=== PATIENT | male | born 1955 | race Caucasian/White ===

== ENCOUNTER 2019-02-10 09:36 | Inpatient (IN) | payer MEDICARE, OTHER ==
[2019-02-10] MEDS ORDERED: Acetaminophen 500 MG Tab PO PRN (15:42)
[2019-02-10] MEDS ORDERED: oxyCODONE 5 MG Tab PO PRN (15:42)
[2019-02-10] MEDS ORDERED: Nicotine Polacrilex 2 MG Loz Box BUCCAL PRN (15:42)
[2019-02-10] MEDS ORDERED: Albuterol 8 GM Inhaler INH PRN (15:42)
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
[2019-02-10] MEDS: Gabapentin 400 MG Cap PO SCH ×2 (18:27→21:05)
[2019-02-10] MEDS: Sodium Chloride 0.9% 250 ML IV SCH (20:11)
[2019-02-10] MEDS: Tamsulosin 0.4 MG Cap.ER PO SCH (20:58)
[2019-02-10] MEDS: Mirtazapine 30 MG Tab PO SCH (20:58)
[2019-02-10] MEDS: Formoterol/Mometasone 100-5 MCG 8.8 GM Inhaler IH SCH (21:01)
[2019-02-10] MEDS: Nystatin Ointment 15 GM Tube TOP SCH (21:33)
[2019-02-10] MEDS: Sodium Chloride 0.9% 10 ML Syringe FLUSH PRN ×2 (21:35→22:42)
[2019-02-11] MEDS: Sodium Chloride 0.9% 10 ML Syringe FLUSH PRN ×4 (04:04→20:30)
[2019-02-11] MEDS: Formoterol/Mometasone 100-5 MCG 8.8 GM Inhaler IH SCH ×2 (10:24→21:40)
[2019-02-11] MEDS: Folic Acid 1 MG Tab PO SCH (10:26)
[2019-02-11] MEDS: Nicotine 14 MG/24 Hr Patch TOP SCH (10:26)
[2019-02-11] MEDS: Thiamine 100 MG Tab PO SCH (10:27)
[2019-02-11] MEDS: Gabapentin 400 MG Cap PO SCH ×3 (10:27→21:43)
[2019-02-11] MEDS: Multivitamins,Therapeutic Tab PO SCH (10:27)
[2019-02-11] MEDS: Cyanocobalamin (Vitamin B12) 500 MCG Tab PO SCH (10:27)
[2019-02-11] MEDS: Nystatin Ointment 15 GM Tube TOP SCH ×2 (10:27→21:40)
[2019-02-11] MEDS: Ascorbic Acid 500 MG Tab PO SCH (10:28)
[2019-02-11] MEDS: Cholecalciferol (Vitamin D3) 25 MCG Tab PO SCH (10:28)
[2019-02-11] MEDS: Sodium Chloride 0.9% 250 ML IV SCH (20:16)
[2019-02-11] MEDS: Tamsulosin 0.4 MG Cap.ER PO SCH (21:40)
[2019-02-11] MEDS: Mirtazapine 30 MG Tab PO SCH (21:40)
[2019-02-12] MEDS: Formoterol/Mometasone 100-5 MCG 8.8 GM Inhaler IH SCH ×2 (08:26→20:57)
[2019-02-12] MEDS: Gabapentin 400 MG Cap PO SCH ×3 (08:27→20:57)
[2019-02-12] MEDS: Nicotine 14 MG/24 Hr Patch TOP SCH (08:27)
[2019-02-12] MEDS: Nystatin Ointment 15 GM Tube TOP SCH ×2 (08:27→21:00)
[2019-02-12] MEDS: Folic Acid 1 MG Tab PO SCH (08:27)
[2019-02-12] MEDS: Thiamine 100 MG Tab PO SCH (08:28)
[2019-02-12] MEDS: Ascorbic Acid 500 MG Tab PO SCH (08:28)
[2019-02-12] MEDS: Multivitamins,Therapeutic Tab PO SCH (08:28)
[2019-02-12] MEDS: Cyanocobalamin (Vitamin B12) 500 MCG Tab PO SCH (08:28)
[2019-02-12] MEDS: Cholecalciferol (Vitamin D3) 25 MCG Tab PO SCH (08:28)
[2019-02-12] MEDS ORDERED: Magnesium Hydroxide 400 MG/5 ML Susp 30 ML Cup PO PRN (12:15)
[2019-02-12] MEDS: Sodium Chloride 0.9% 10 ML Syringe FLUSH PRN ×3 (14:52→22:52)
[2019-02-12] MEDS: Tamsulosin 0.4 MG Cap.ER PO SCH (20:57)
[2019-02-12] MEDS: Mirtazapine 30 MG Tab PO SCH (21:01)
[2019-02-13] MEDS: Formoterol/Mometasone 100-5 MCG 8.8 GM Inhaler IH SCH ×2 (09:54→20:23)
[2019-02-13] MEDS: Folic Acid 1 MG Tab PO SCH (09:55)
[2019-02-13] MEDS: Nicotine 14 MG/24 Hr Patch TOP SCH (09:56)
[2019-02-13] MEDS: Multivitamins,Therapeutic Tab PO SCH (09:57)
[2019-02-13] MEDS: Cholecalciferol (Vitamin D3) 25 MCG Tab PO SCH (09:58)
[2019-02-13] MEDS: Thiamine 100 MG Tab PO SCH (09:58)
[2019-02-13] MEDS: Ascorbic Acid 500 MG Tab PO SCH (09:59)
[2019-02-13] MEDS: Cyanocobalamin (Vitamin B12) 500 MCG Tab PO SCH (09:59)
[2019-02-13] MEDS: Gabapentin 400 MG Cap PO SCH ×3 (10:04→20:33)
[2019-02-13] MEDS: Nystatin Ointment 15 GM Tube TOP SCH ×2 (11:02→20:23)
[2019-02-13] MEDS: Sodium Chloride 0.9% 10 ML Syringe FLUSH PRN ×4 (12:30→22:06)
[2019-02-13] MEDS: Tamsulosin 0.4 MG Cap.ER PO SCH (20:23)
[2019-02-13] MEDS: Mirtazapine 30 MG Tab PO SCH (20:24)
[2019-02-14] MEDS: Sodium Chloride 0.9% 10 ML Syringe FLUSH PRN ×6 (03:19→22:23)
[2019-02-14] MEDS: Nicotine 14 MG/24 Hr Patch TOP SCH (09:00)
[2019-02-14] MEDS: Formoterol/Mometasone 100-5 MCG 8.8 GM Inhaler IH SCH ×2 (09:27→20:22)
[2019-02-14] MEDS: Gabapentin 400 MG Cap PO SCH ×3 (09:28→20:23)
[2019-02-14] MEDS: Folic Acid 1 MG Tab PO SCH (09:28)
[2019-02-14] MEDS: Multivitamins,Therapeutic Tab PO SCH (09:29)
[2019-02-14] MEDS: Cyanocobalamin (Vitamin B12) 500 MCG Tab PO SCH (09:29)
[2019-02-14] MEDS: Thiamine 100 MG Tab PO SCH (09:30)
[2019-02-14] MEDS: Ascorbic Acid 500 MG Tab PO SCH (09:30)
[2019-02-14] MEDS: Cholecalciferol (Vitamin D3) 25 MCG Tab PO SCH (09:30)
[2019-02-14] MEDS: Nystatin Ointment 15 GM Tube TOP SCH ×2 (11:36→20:23)
[2019-02-14] MEDS: Mirtazapine 30 MG Tab PO SCH (20:23)
[2019-02-14] MEDS: Tamsulosin 0.4 MG Cap.ER PO SCH (20:23)
[2019-02-15] MEDS: Sodium Chloride 0.9% 10 ML Syringe FLUSH PRN ×6 (03:43→22:41)
[2019-02-15] MEDS ORDERED: Enoxaparin 60 MG/0.6 ML Syringe SUBCUT ONE (07:27)
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
[2019-02-15] MEDS: Nicotine 14 MG/24 Hr Patch TOP SCH (10:07)
[2019-02-15] MEDS: Formoterol/Mometasone 100-5 MCG 8.8 GM Inhaler IH SCH ×2 (10:07→20:25)
[2019-02-15] MEDS: Folic Acid 1 MG Tab PO SCH (10:07)
[2019-02-15] MEDS: Nystatin Ointment 15 GM Tube TOP SCH ×2 (10:08→20:30)
[2019-02-15] MEDS: Ascorbic Acid 500 MG Tab PO SCH (10:09)
[2019-02-15] MEDS: Cholecalciferol (Vitamin D3) 25 MCG Tab PO SCH (10:09)
[2019-02-15] MEDS: Multivitamins,Therapeutic Tab PO SCH (10:09)
[2019-02-15] MEDS: Thiamine 100 MG Tab PO SCH (10:09)
[2019-02-15] MEDS: Cyanocobalamin (Vitamin B12) 500 MCG Tab PO SCH (10:09)
[2019-02-15] MEDS: Gabapentin 300 MG Cap PO SCH ×3 (10:11→20:30)
[2019-02-15] MEDS: Tamsulosin 0.4 MG Cap.ER PO SCH (20:26)
[2019-02-15] MEDS: Mirtazapine 15 MG Tab PO SCH (20:26)
[2019-02-16] MEDS: Sodium Chloride 0.9% 10 ML Syringe FLUSH PRN ×5 (04:24→20:01)
[2019-02-16] MEDS: Formoterol/Mometasone 100-5 MCG 8.8 GM Inhaler IH SCH ×2 (10:13→20:41)
[2019-02-16] MEDS: Nystatin Ointment 15 GM Tube TOP SCH ×2 (10:15→20:41)
[2019-02-16] MEDS: Nicotine 14 MG/24 Hr Patch TOP SCH (10:15)
[2019-02-16] MEDS: Folic Acid 1 MG Tab PO SCH (10:15)
[2019-02-16] MEDS: Cyanocobalamin (Vitamin B12) 500 MCG Tab PO SCH (10:16)
[2019-02-16] MEDS: Ascorbic Acid 500 MG Tab PO SCH (10:16)
[2019-02-16] MEDS: Multivitamins,Therapeutic Tab PO SCH (10:16)
[2019-02-16] MEDS: Thiamine 100 MG Tab PO SCH (10:16)
[2019-02-16] MEDS: Cholecalciferol (Vitamin D3) 25 MCG Tab PO SCH (10:17)
[2019-02-16] MEDS: Gabapentin 300 MG Cap PO SCH ×3 (10:22→20:46)
[2019-02-16] MEDS: Tamsulosin 0.4 MG Cap.ER PO SCH (20:40)
[2019-02-16] MEDS: Mirtazapine 15 MG Tab PO SCH (20:40)
[2019-02-17] MEDS: Ascorbic Acid 500 MG Tab PO SCH (09:23)
[2019-02-17] MEDS: Formoterol/Mometasone 100-5 MCG 8.8 GM Inhaler IH SCH ×2 (09:23→20:38)
[2019-02-17] MEDS: Gabapentin 300 MG Cap PO SCH ×3 (09:23→20:38)
[2019-02-17] MEDS: Thiamine 100 MG Tab PO SCH (09:23)
[2019-02-17] MEDS: Folic Acid 1 MG Tab PO SCH (09:23)
[2019-02-17] MEDS: Cyanocobalamin (Vitamin B12) 500 MCG Tab PO SCH (09:24)
[2019-02-17] MEDS: Cholecalciferol (Vitamin D3) 25 MCG Tab PO SCH (09:24)
[2019-02-17] MEDS: Multivitamins,Therapeutic Tab PO SCH (09:24)
[2019-02-17] MEDS: Nystatin Ointment 15 GM Tube TOP SCH ×2 (09:24→20:38)
[2019-02-17] MEDS: Nicotine 14 MG/24 Hr Patch TOP SCH (09:31)
[2019-02-17] MEDS: Sodium Chloride 0.9% 10 ML Syringe FLUSH PRN ×2 (14:12→20:15)
[2019-02-17] MEDS: Tamsulosin 0.4 MG Cap.ER PO SCH (20:38)
[2019-02-17] MEDS: Mirtazapine 15 MG Tab PO SCH (20:38)
[2019-02-18] MEDS: Sodium Chloride 0.9% 10 ML Syringe FLUSH PRN ×3 (04:19→20:12)
[2019-02-18] MEDS: Nicotine 7 MG/24 Hr Patch TOP SCH (09:13)
[2019-02-18] MEDS: Thiamine 100 MG Tab PO SCH (09:15)
[2019-02-18] MEDS: Formoterol/Mometasone 100-5 MCG 8.8 GM Inhaler IH SCH ×2 (09:15→20:21)
[2019-02-18] MEDS: Cyanocobalamin (Vitamin B12) 500 MCG Tab PO SCH (09:15)
[2019-02-18] MEDS: Nystatin Ointment 15 GM Tube TOP SCH ×2 (09:15→20:20)
[2019-02-18] MEDS: Gabapentin 300 MG Cap PO SCH ×3 (09:15→20:27)
[2019-02-18] MEDS: Multivitamins,Therapeutic Tab PO SCH (09:15)
[2019-02-18] MEDS: Cholecalciferol (Vitamin D3) 25 MCG Tab PO SCH (09:15)
[2019-02-18] MEDS: Ascorbic Acid 500 MG Tab PO SCH (09:16)
[2019-02-18] MEDS: Folic Acid 1 MG Tab PO SCH (09:16)
[2019-02-18] MEDS: Mirtazapine 15 MG Tab PO SCH (20:23)
[2019-02-18] MEDS: Tamsulosin 0.4 MG Cap.ER PO SCH (20:23)
[2019-02-19] MEDS: Sodium Chloride 0.9% 10 ML Syringe FLUSH PRN ×5 (04:05→21:43)
[2019-02-19] MEDS: Formoterol/Mometasone 100-5 MCG 8.8 GM Inhaler IH SCH ×2 (08:35→20:15)
[2019-02-19] MEDS: Folic Acid 1 MG Tab PO SCH (08:36)
[2019-02-19] MEDS: Nicotine 7 MG/24 Hr Patch TOP SCH (08:37)
[2019-02-19] MEDS: Gabapentin 300 MG Cap PO SCH ×3 (08:44→20:16)
[2019-02-19] MEDS: Nystatin Ointment 15 GM Tube TOP SCH ×2 (08:45→20:16)
[2019-02-19] MEDS: Multivitamins,Therapeutic Tab PO SCH (08:46)
[2019-02-19] MEDS: Cyanocobalamin (Vitamin B12) 500 MCG Tab PO SCH (08:46)
[2019-02-19] MEDS: Ascorbic Acid 500 MG Tab PO SCH (08:47)
[2019-02-19] MEDS: Thiamine 100 MG Tab PO SCH (08:47)
[2019-02-19] MEDS: Cholecalciferol (Vitamin D3) 25 MCG Tab PO SCH (08:48)
[2019-02-19] MEDS: Tamsulosin 0.4 MG Cap.ER PO SCH (20:16)
[2019-02-19] MEDS: Mirtazapine 15 MG Tab PO SCH (20:17)
[2019-02-20] MEDS: Sodium Chloride 0.9% 10 ML Syringe FLUSH PRN ×6 (03:46→21:51)
[2019-02-20] MEDS: Formoterol/Mometasone 100-5 MCG 8.8 GM Inhaler IH SCH ×2 (08:44→20:00)
[2019-02-20] MEDS: Nicotine 7 MG/24 Hr Patch TOP SCH (08:50)
[2019-02-20] MEDS: Folic Acid 1 MG Tab PO SCH (08:50)
[2019-02-20] MEDS: Gabapentin 300 MG Cap PO SCH ×3 (08:52→20:00)
[2019-02-20] MEDS: Nystatin Ointment 15 GM Tube TOP SCH ×2 (08:53→20:01)
[2019-02-20] MEDS: Thiamine 100 MG Tab PO SCH (08:54)
[2019-02-20] MEDS: Multivitamins,Therapeutic Tab PO SCH (08:54)
[2019-02-20] MEDS: Cyanocobalamin (Vitamin B12) 500 MCG Tab PO SCH (08:55)
[2019-02-20] MEDS: Ascorbic Acid 500 MG Tab PO SCH (08:55)
[2019-02-20] MEDS: Cholecalciferol (Vitamin D3) 25 MCG Tab PO SCH (08:56)
[2019-02-20] MEDS: Tamsulosin 0.4 MG Cap.ER PO SCH (20:00)
[2019-02-20] MEDS: Mirtazapine 15 MG Tab PO SCH (20:01)
[2019-02-21] MEDS: Sodium Chloride 0.9% 10 ML Syringe FLUSH PRN ×6 (03:34→21:43)
[2019-02-21] MEDS: Folic Acid 1 MG Tab PO SCH (09:10)
[2019-02-21] MEDS: Formoterol/Mometasone 100-5 MCG 8.8 GM Inhaler IH SCH ×2 (09:10→20:02)
[2019-02-21] MEDS: Nicotine 7 MG/24 Hr Patch TOP SCH (09:12)
[2019-02-21] MEDS: Nystatin Ointment 15 GM Tube TOP SCH ×2 (09:12→20:03)
[2019-02-21] MEDS: Gabapentin 300 MG Cap PO SCH ×3 (09:12→20:02)
[2019-02-21] MEDS: Multivitamins,Therapeutic Tab PO SCH (09:24)
[2019-02-21] MEDS: Cyanocobalamin (Vitamin B12) 500 MCG Tab PO SCH (09:25)
[2019-02-21] MEDS: Ascorbic Acid 500 MG Tab PO SCH (09:25)
[2019-02-21] MEDS: Thiamine 100 MG Tab PO SCH (09:25)
[2019-02-21] MEDS: Cholecalciferol (Vitamin D3) 25 MCG Tab PO SCH (09:26)
[2019-02-21] MEDS: Tamsulosin 0.4 MG Cap.ER PO SCH (20:02)
[2019-02-21] MEDS: Mirtazapine 15 MG Tab PO SCH (20:03)
[2019-02-22] MEDS: Sodium Chloride 0.9% 10 ML Syringe FLUSH PRN ×7 (03:07→22:15)
[2019-02-22] MEDS: Nicotine 7 MG/24 Hr Patch TOP SCH (08:26)
[2019-02-22] MEDS: Gabapentin 300 MG Cap PO SCH ×3 (08:26→20:10)
[2019-02-22] MEDS: Folic Acid 1 MG Tab PO SCH (08:27)
[2019-02-22] MEDS: Cholecalciferol (Vitamin D3) 25 MCG Tab PO SCH (08:27)
[2019-02-22] MEDS: Ascorbic Acid 500 MG Tab PO SCH (08:27)
[2019-02-22] MEDS: Formoterol/Mometasone 100-5 MCG 8.8 GM Inhaler IH SCH ×2 (08:28→20:07)
[2019-02-22] MEDS: Thiamine 100 MG Tab PO SCH (08:28)
[2019-02-22] MEDS: Multivitamins,Therapeutic Tab PO SCH (08:33)
[2019-02-22] MEDS: Cyanocobalamin (Vitamin B12) 500 MCG Tab PO SCH (08:33)
[2019-02-22] MEDS: Nystatin Ointment 15 GM Tube TOP SCH ×2 (08:34→20:07)
[2019-02-22] MEDS: Mirtazapine 15 MG Tab PO SCH (20:07)
[2019-02-22] MEDS: Tamsulosin 0.4 MG Cap.ER PO SCH (20:07)
[2019-02-23] MEDS: Sodium Chloride 0.9% 10 ML Syringe FLUSH PRN ×7 (03:20→21:36)
[2019-02-23] MEDS: Formoterol/Mometasone 100-5 MCG 8.8 GM Inhaler IH SCH ×2 (09:01→20:16)
[2019-02-23] MEDS: Folic Acid 1 MG Tab PO SCH (09:02)
[2019-02-23] MEDS: Nicotine 7 MG/24 Hr Patch TOP SCH (09:03)
[2019-02-23] MEDS: Nystatin Ointment 15 GM Tube TOP SCH ×2 (09:03→20:18)
[2019-02-23] MEDS: Multivitamins,Therapeutic Tab PO SCH (09:03)
[2019-02-23] MEDS: Cholecalciferol (Vitamin D3) 25 MCG Tab PO SCH (09:04)
[2019-02-23] MEDS: Ascorbic Acid 500 MG Tab PO SCH (09:04)
[2019-02-23] MEDS: Cyanocobalamin (Vitamin B12) 500 MCG Tab PO SCH (09:04)
[2019-02-23] MEDS: Thiamine 100 MG Tab PO SCH (09:15)
[2019-02-23] MEDS: Gabapentin 300 MG Cap PO SCH ×3 (09:15→20:18)
[2019-02-23] MEDS: Tamsulosin 0.4 MG Cap.ER PO SCH (20:16)
[2019-02-23] MEDS: Mirtazapine 15 MG Tab PO SCH (20:18)
[2019-02-24] MEDS: Sodium Chloride 0.9% 10 ML Syringe FLUSH PRN ×5 (03:42→21:24)
[2019-02-24] MEDS: Gabapentin 300 MG Cap PO SCH ×3 (08:02→20:00)
[2019-02-24] MEDS: Formoterol/Mometasone 100-5 MCG 8.8 GM Inhaler IH SCH ×2 (08:03→19:59)
[2019-02-24] MEDS: Thiamine 100 MG Tab PO SCH (08:03)
[2019-02-24] MEDS: Multivitamins,Therapeutic Tab PO SCH (08:03)
[2019-02-24] MEDS: Cholecalciferol (Vitamin D3) 25 MCG Tab PO SCH (08:03)
[2019-02-24] MEDS: Folic Acid 1 MG Tab PO SCH (08:03)
[2019-02-24] MEDS: Nystatin Ointment 15 GM Tube TOP SCH ×2 (08:03→20:00)
[2019-02-24] MEDS: Cyanocobalamin (Vitamin B12) 500 MCG Tab PO SCH (08:04)
[2019-02-24] MEDS: Ascorbic Acid 500 MG Tab PO SCH (08:04)
[2019-02-24] MEDS: Nicotine 7 MG/24 Hr Patch TOP SCH (09:47)
[2019-02-24] MEDS: Tamsulosin 0.4 MG Cap.ER PO SCH (19:59)
[2019-02-24] MEDS: Mirtazapine 15 MG Tab PO SCH (20:00)
[2019-02-25] MEDS: Nystatin Ointment 15 GM Tube TOP SCH ×3 (09:00→21:01)
[2019-02-25] MEDS: Formoterol/Mometasone 100-5 MCG 8.8 GM Inhaler IH SCH ×2 (09:00→21:00)
[2019-02-25] MEDS: Gabapentin 300 MG Cap PO SCH ×3 (09:01→21:00)
[2019-02-25] MEDS: Multivitamins,Therapeutic Tab PO SCH (09:01)
[2019-02-25] MEDS: Thiamine 100 MG Tab PO SCH (09:01)
[2019-02-25] MEDS: Ascorbic Acid 500 MG Tab PO SCH (09:01)
[2019-02-25] MEDS: Cholecalciferol (Vitamin D3) 25 MCG Tab PO SCH (09:01)
[2019-02-25] MEDS: Folic Acid 1 MG Tab PO SCH (09:01)
[2019-02-25] MEDS: Cyanocobalamin (Vitamin B12) 500 MCG Tab PO SCH (09:01)
[2019-02-25] MEDS: Nicotine 7 MG/24 Hr Patch TOP SCH (09:04)
--- OUTSIDE RECORDS SUMMARY | 2019-02-25 13:12 | XMSREPORT ---
:1955 Author Organization [facility] Address [address] [place] [address] Care Team Providers Name Role Phone Yennifer Kate PA-C Primary Care Provider Yennifer Kate PA-C Attributed Provider Reason for Referral Comprehensive Primary [facility] Plus (Routine) Status Reason Specialty Diagnoses / Referred By Referred To Procedures Contact Contact New Request Behavioral Health Diagnoses Current moderate episode of major depressive disorder without prior episode (HCC ) [place] (generalized anxiety disorder) [facility] Alberto Napier MD Psych [address] [place] [address] [place] MS Phone: [phone] Phone: Scheduling Instructions This is an electronic referral. Reason for Visit Reason Comments Fever Pt presents to ED with c/o weakness and fever of 101.9 @ home. Per pt. was recently diagnosed with pneumonia and admitted into the hospital 1 week ago. Pt. was Discharged and had been seeming to do better until today he reported increased weakness, cough, and fever. Pt. did give pt. 1000mg of Tylenol at approxiamtely 1830 Weakness Auth/Cert Status Reason Specialty Diagnoses / Procedures Referred By Contact Referred To Contact Encounter Details Date Type Department Care Team Description 01/27/2019 - Hospital Encounter [facility] Gustavo Bob MD [address] [place] [address] Pneumonia of right 02/10/2019 [facility] Stepan Whalen DO [address] [place] [address] [phone] upper lobe due to [address] Alexis Poon MD [address] [place] [address] [phone] [place] [address] Osito Vargas MD [address] [place] [address] (HCC) [phone] Kymberly Connolly MD [address] [place] [address] Allergies No Known Allergiesdocumented as of this encounter (statuses as of 02/10/2019) Medications Medication Sig Dispensed Refills Start End Date Status Date folic acid 1 mg Take 1 tablet (1 30 tablet 0 Active tabletIndications: mg) by mouth 1 9 Health time per day Maintainence Indications: Health Maintainence Thiamine HCl Take 1 tablet (100 30 tablet 0 Active (THIAMINE, VITAMIN mg) by mouth 1 9 B-1,) 100 mg time per day tabletIndications: Indications: health health maintainence maintainence multivitamin Take 1 tablet by 30 tablet 0 Active therapeutic with mouth 1 time per 9 minerals (THERA-M) day Indications: tabletIndications: health health maintainence maintainence vitamin C, Take 1 tablet (250 30 tablet 0 Active ascorbic acid, 250 mg) by mouth 1 9 MG time per day tabletIndications: Indications: Health Health Maintainence Maintainence vitamin D3, Take 1 tablet 30 tablet 0 Active cholecalciferol, (2,000 Units) by 9 2000 unit mouth 1 time per tabletIndications: day Indications: Health Health maintainence maintainence fluticasone-vilant Inhale 1 puff 1 Inhaler 11 02/15/20 Active yuliana (BREO orally 1 time per 9 20 ELLIPTA) 100-25 day Rinse mouth mcg/puff after use. inhalerIndications : Chronic obstructive pulmonary disease, unspecified COPD type (HCC) acetaminophen Take 2 tablets 0 Active (TYLENOL) 500 mg (1,000 mg) by 9 tabletIndications: mouth Every 8 Pain hours as needed for moderate pain Indications: Pain albuterol HFA Inhale 1 puff 1 Inhaler 4 Active (PROVENTIL,PROAIR, orally every 6 9 VENTOLIN) 108 (90 hours as needed Base) MCG/ACT for shortness of inhalerIndications breath, wheezing : COPD or cough Indications: COPD Shake well before using. nicotine Apply 1 patch (14 30 patch 0 Active (NICODERM) 14 mg) to the skin 1 9 mg/24hr time per day [id number]: Indications: Smoking Cessation Treatment to Stop Therapy Smoking nicotine Place 1 lozenge (2 81 each 0 Active polacrilex mg) into mouth 9 (COMMIT) 2 MG Every hour as LOZGIndications: needed for smoking Smoking Cessation cessation Therapy Indications: Treatment to Stop Smoking tamsulosin Take 1 capsule 90 capsule 0 Active (FLOMAX) 0.4 mg (0.4 mg) by mouth 9 capsuleIndications every night at : Urinary bedtime retention mirtazapine Take 1 tablet (30 90 tablet 4 02/15/20 Active (REMERON) 30 mg mg) by mouth every 9 20 tabletIndications: night at bedtime Depressive disorder due to separate medical condition oxyCODONE (OXY-IR) Take 1 tablet (5 12 tablet 0 Active 5 mg tablet mg) by mouth every 9 (immediate 6 hours as needed release)Indication for moderate pain s: Post-op pain Earliest Fill Date: 02/10/19 sodium chloride Administer 10 mL intravenously As often as necessary for other (Specify) (Flush infusion line before each antibiotic infusion and after each infusion completed) Flush infusion line before each antibiotic infusion and after each infusion completed. 0 Active 0.9% prefilled 10 Flush line with heparin 300 units/ 3 mL after the last saline flush 9 mL syringe 0.9% SOLNIndications: Pneumonia of right upper lobe due to Pseudomonas species (HCC) hEParin 100 Administer 3 mL 0 Active units/mL injection (300 Units) 9 solutionIndication intravenously As s: Pneumonia of often as necessary right upper lobe for other due to Pseudomonas (Specify) (heparin species (HCC) 300 units/3 mL IV FLUSH after completion of each antibiotic infusion (after saline flush)) heparin 300 units/3 mL IV FLUSH after completion of each antibiotic infusion (after saline flush) ceftazidime-avibac Administer 2,500 0 Active alcaraz (AVYCAZ) 2.5 g mg intravenously 9 in sodium chloride Every 8 hours 0.9% 250 mLIndications: Pneumonia of right upper lobe due to Pseudomonas species ([facility]) cyanocobalamin, Take 1 tablet (250 30 tablet 0 Active vitamin B-12, mcg) by mouth 1 9 (VITAMIN B-12) 250 time per day mcg Indications: tabletIndications: health health maintainence maintainence gabapentin Take 1 capsule 90 capsule 0 Active (NEURONTIN) 400 mg (400 mg) by mouth 9 capsuleIndications 3 times a day : Pain Indications: Pain nystatin (NILSTAT) Apply topically 2 15 g 0 02/14/20 Active ointmentIndication times a day for 3 03 11 s: Diaper rash days albuterol HFA Inhale 1-2 puffs 1 Inhaler 4 02/11/20 Discontinued (PROVENTIL,PROAIR, orally every 4 to 03 11 VENTOLIN) 108 (90 6 hours as needed Base) MCG/ACT for shortness of inhalerIndications breath, wheezing : Acute or cough Shake exacerbation of well before using. chronic obstructive pulmonary disease (COPD) ([facility]) fluticasone-vilant Inhale 1 puff 1 Inhaler 11 02/11/20 Discontinued yuliana (BREO orally 1 time per 03 11 ELLIPTA) 100-25 day Rinse mouth mcg/puff after use. inhalerIndications : Chronic obstructive pulmonary disease, unspecified COPD type ([facility]) acetaminophen Take 2 tablets 0 02/11/20 Discontinued (TYLENOL) 500 mg (1,000 mg) by 03 11 tabletIndications: mouth Every 8 S/P spinal fusion hours as needed for moderate pain cyanocobalamin, Take 1 tablet (250 30 tablet 0 02/11/20 Discontinued vitamin B-12, mcg) by mouth 1 19 (VITAMIN B-12) 250 time per day mcg tabletIndications: Increased nutritional needs folic acid 1 mg Take 1 tablet (1 30 tablet 0 02/11/20 Discontinued tabletIndications: mg) by mouth 1 9 Increased time per day nutritional needs gabapentin Take 1 capsule 90 capsule 0 02/11/20 Discontinued (NEURONTIN) 400 mg (400 mg) by mouth 03 11 capsuleIndications 3 times a day : S/P spinal fusion multivitamin Take 1 tablet by 0 02/11/20 Discontinued therapeutic with mouth 1 time per 03 11 minerals (THERA-M) day tabletIndications: Increased nutritional needs nicotine Apply 1 patch (14 30 patch 0 02/11/20 Discontinued (NICODERM) 14 mg) to the skin 1 03 11 mg/24hr time per day [id number]: History of nicotine dependence tamsulosin Take 1 capsule 30 capsule 0 02/11/20 Discontinued (FLOMAX) 0.4 mg (0.4 mg) by mouth 03 11 capsuleIndications every night at : Benign nodular bedtime prostatic hyperplasia with lower urinary tract symptoms Thiamine HCl Take 1 tablet (100 30 tablet 0 02/11/20 Discontinued (THIAMINE, VITAMIN mg) by mouth 1 03 11 B-1,) 100 mg time per day tabletIndications: Increased nutritional needs vitamin C, Take 1 tablet (250 30 tablet 0 02/11/20 Discontinued ascorbic acid, 250 mg) by mouth 1 9 19 MG time per day tabletIndications: Increased nutritional needs vitamin D3, Take 1 tablet 30 tablet 0 02/11/20 Discontinued cholecalciferol, (2,000 Units) by 03 11 2000 unit mouth 1 time per tabletIndications: day Increased nutritional needs levoFLOXacin Take 1 tablet (750 14 tablet 0 02/11/20 Discontinued (LEVAQUIN) 750 mg mg) by mouth 1 03 11 tabletIndications: time per day for Bacteremia, 14 days Pneumonia of right upper lobe due to Pseudomonas species (HCC) nicotine Place 1 lozenge (2 81 each 0 02/11/20 Discontinued polacrilex mg) into mouth 03 11 (COMMIT) 2 MG Every hour as LOZGIndications: needed for smoking COPD, moderate cessation (HCC) predniSONE 5 mg Take 2 tablets 12 tablet 0 02/11/20 Discontinued tabletIndications: (10mg) by mouth 03 11 COPD, moderate daily for 4 days, (HCC) then 1 tablet (5mg) daily for 4 days then stop. documented as of this encounter (statuses as of 02/10/2019) Active Problems Problem Noted Date Pneumonia of right upper lobe due to Pseudomonas species 01/28/2019 Sepsis due to Pseudomonas 01/28/2019 Pneumonia 01/17/2019 Weakness 12/08/2018 Overview: Right leg. 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 Acute pain of right shoulder 06/12/2017 ED (erectile dysfunction) 10/21/2016 Urinary urgency 10/21/2016 Urge incontinence 10/21/2016 Colonic mass 06/07/2016 Prostate cancer 05/16/2015 Cancer Staging: Clinical: [id number] - Signed by Ollie Marrero MD on 2014 Overview: Prostatic adenocarcinoma, Yonas score 7 (4+3) involving bilateral lobes, approximately 20% of the tissue, and confined to the prostate. Benign nodular prostatic hyperplasia with lower urinary tract symptoms 2014 Microscopic hematuria 04/06/2015 Elevated PSA, less than 10 ng/ml 03/20/2015 COPD, moderate 08/10/2014 documented as of this encounter (statuses as of 02/10/2019) Resolved Problems Problem Noted Date Resolved Date TBI (traumatic brain injury) 12/08/2018 01/05/2019 Other insomnia 12/08/2018 01/05/2019 Trauma 11/27/2018 01/05/2019 documented as of this encounter (statuses as of 02/10/2019) Immunizations Name Dates Previously Given Next Due FLU VACCINE HIGH DOSE 65YR+(Fluzone) 06/24/2018 FLU VACCINE SINGLE DOSE 06/12/2017 0.5mL(6MO+Fluzone/Flulaval/Fluarix,5YR+Af luria) Gentamicin 80 Mg/2ml 05/02/2015 HEP B VACCINE 10/31/2000, 03/17/2000, 02/01/2000 Influenza Trivalent w/preserv 05/01/2015 Influenza Vaccine,unspecified 05/04/2015 Pneumococcal Conj PCV13 06/24/2018 Pneumococcal Polysaccharide PPSV23 05/01/2015 TDAP 03/16/2015 documented as of this encounter Social History Tobacco Use Types Packs/Day Years Used Date Former Smoker Cigarettes 2 34 06/23/1968 - 06/23/2006 Smokeless Tobacco: Former User Chew Comments: 2-3 tin/ wk. Alcohol Use Drinks/Week oz/Week Comments Not Currently 6 Cans of beer 3.6 socially Sexually Active Control Partners Comments Yes Surgical Female Sex Assigned at Date Recorded Not on file Job Start Date Occupation Industry Not on file Not on file Not on file Travel History Travel Start Travel End No recent travel history available. documented as of this encounter Last Filed Vital Signs Vital Sign Reading Time Taken Blood Pressure 123/71 02/10/2019 12:37 PM CDT Pulse 95 02/10/2019 1:10 PM CDT Temperature 37 C (98.6 F) 02/10/2019 12:37 PM CDT Respiratory Rate 16 02/10/2019 12:37 PM CDT Oxygen Saturation 92% 02/10/2019 1:10 PM CDT Inhaled Oxygen Concentration - - Weight 65.2 kg (143 lb 11.8 oz) 02/02/2019 6:00 AM CDT Height 172.7 cm (5' 8") 01/27/2019 11:08 PM CDT Body Mass Index 21.86 01/27/2019 11:08 PM CDT documented in this encounter Functional Status Functional Status Response Date of Assessment Is the person deaf or does he/she No 01/28/2019 have serious difficulty hearing? Is this person blind or does he/she No 01/28/2019 have difficulty seeing even when wearing glasses? Do you have difficulty with walking, Yes 01/27/2019 balance, climbing stairs, or had a fall in the last 3 months? Does the patient have difficulty Yes 01/27/2019 dressing or bathing? Because of a physical, mental, or No - Pt reports ride service 01/27/2019 emotional condition; does this person have difficulty doing errands alone such as visiting a doctor's office or shopping? Cognitive Status Response Date of Assessment Because of a physical, mental, or emotional condition; No 01/27/2019 does this person have serious difficulty concentrating, remembering, or making decisions? documented as of this encounter Discharge Summaries Not on filedocumented in this encounter Discharge Instructions Sarah Velez RN - 02/07/2019 Cardiothoracic Surgery Discharge Instructions 1. Follow up with Dr. Monique in 1 week after discharge as scheduled. 2. Do not lift anything heavier than a gallon of milk or do any strenuous upper body activity with your right upper body for 4 weeks from the date of surgery. 3. Keep your incisions clean and dry. They can be washed with soap and water then patted dry. No dressings, ointments, creams, or powders are necessary unless directed by your doctor. 4. Place a band-aid or dry dressing over your chest tube sites only if draining 5. Call Dr. Monique' office at [phone] if any of the following symptoms appear: Fever If your incisions appear reddened, draining purulent drainage, or if the wound edges come apart. If you develop shortness of breath or activity intolerance If your pain is severe and/or not relieved with pain medication 6. If any of the above symptoms appear after hours, or on weekends, call [facility] at or [phone]. 7. You may shower, however do not take a tub bath, until okayed by your doctor. 8. Do not drive until off of narcotic pain medicine. 9. Continue to use your incentive spirometer at home. Discharge Instructions: Caring for Your Peripherally Inserted Central Catheter ( PICC) You are going home with a peripherally inserted central catheter (PICC). This small, soft tube has been placed in a vein in your arm. It is often used when treatment requires medicines or nutrition forweeks or months. At home, you need to take care of your PICC to keep it working.Because a PICC line has a high infection risk, you must take extra care washing your hands and preventing the spread ofgerms. This sheet will help you remember what to do to care for your PICC at home. Understanding your role A nurse or other healthcare provider will teach you and your caregivers how to care for the PICC.Before leaving the hospital, make sure you understand what to do at home, how long you may need the PICC, and when to have a follow-up visit. You will likely be told to flush the PICC with saline or heparin solution. You may also be told to change the catheters injection caps and change the dressing (bandage). Or, a nurse may do this for you during a follow-up visit. Only do these things if youre told to, following the instructionsyou were given. Protecting the PICC If the PICC gets damaged, it wont work right and could raise your chance of infection. Call your healthcare team right away if any damage occurs. To protect the PICC at home: Prevent infection. Use good hand hygiene by following the guidelines on this sheet. Dont touchthe catheter or dressing unless you need to. And always clean your hands before and after you come in contact with any part of the PICC. Your caregivers, family members, and any visitors should use good hand hygiene, too. Keep the PICC dry. The catheter and dressing must stay dry. Dont take baths, go swimming, use a hot tub, or do other things that could get the PICC wet. Take a sponge bath to avoid getting your catheter wet, unless your healthcare provider tells you otherwise. Ask your provider about the best way to keep your catheter dry when bathing or showering. If the dressing does get wet, change it only if you have been shown how. Otherwise, call your healthcare team right away for help. Avoid damage. Dont use any sharp or pointy objects around the catheter. This includes scissors, pins, knives, razors, or anything else that could cut it or put a hole in it (puncture it). Also, dont let anything pull or rub on the catheter, such as clothing. Watch for signs of problems. Pay attention to how much of the catheter sticks out from your skin.If this changes at all, let your healthcare provider know. Also watch for cracks, leaks, or other damage. If the dressing becomes dirty, loose, or wet, change it (if you have been instructed to). Or call your healthcare team right away. Avoid lowering your chest below your waist. This includes bending at the waist to do things like tying your shoes. When your chest is below your waist, especially for a long time, the catheters internal tip could slip out of place in the vein. Tell your healthcare team if you vomit or have severe coughing. This can also make the catheter slip out of place. Protecting your arm The arm with the PICC is at risk for developing blood clots (thrombosis). This is a serious problem.To help prevent it: As much as possible, use the arm with the PICC in it for normal daily activities. Lack of movement can lead to blood clots. So its important to move your arm as you normally would. Your healthcare team may suggest light arm exercises. Avoid activities or exercises that require major use of your arm, such as sports, unless your healthcare provider says its OK. Avoid any activities that cause mild pain in your arm. Talk to your healthcare team if you have concerns about pain or range of motion. Dont lift anything heavier than 10 pounds with the affected arm. Drink plenty of water. Staying hydrated helps keep clots from forming. Prevent infection with good hand hygiene A PICC can let germs into your body. This can lead to serious and sometimes deadly infections. To prevent infection, its very important that you, your caregivers, and others around you use good handhygiene. This means washing your hands well with soap and water, and cleaning them with an alcohol-based hand gel as directed. Never touch the PICC or dressing without first using one of these methods. To wash your hands with soap and water: Wet your hands with warm water. (Avoid hot water, which can cause skin irritation when you wash your hands often.) Apply enough soap to cover the whole surface of your hands, including your fingers. Rub your hands together vigorously for at least 15 seconds. Make sure to rub the front and back of each hand up to the wrist, your fingers and fingernails, between the fingers, and each thumb. Rinse your hands with warm water. Dry your hands completely with a new, unused paper towel. Dont use a cloth towel or other reusable towel. These can harbor germs. Use the paper towel to turn off the faucet, then throw it away. If youre in a bathroom, also use a paper towel to open the door instead of touching the handle. When you dont have access to soap and water: Use an alcohol-based hand gel to clean your hands.The gel should have at least 60% alcohol. Follow the instructions on the package. Your healthcare team can answer any questions you have about when to use hand gel, or when its better to wash with soap and water. When to seek medical care Call your provider right away if you have any of the following: Pain or burning in your shoulder, chest, back, arm, or leg Fever of 100.4F (38.0C) or higher Chills Signs of infection at the catheter site (pain, redness, drainage, burning, or stinging) Coughing, wheezing, or shortness of breath A racing or irregular heartbeat Muscle stiffness or trouble moving Tightness in your arm, above the catheter site Gurgling noises coming from the catheter The catheter falls out, breaks, cracks, leaks, or has other damage Date Last Reviewed: 12/22/201519992698-3633 [employer]. [address] [place] [address]. All rights reserved. This information is not intended as a substitute for professional medical care. Always follow your healthcare professional's instructions. Central Line Infections Good handwashing helps prevent central line infections. You need a central line as part of your treatment. Its also called a central venous access device(CVAD) or central venous catheter (CVC). A small, soft tube called a catheter is put in a vein that leads to your heart. The central line is used instead of a standard IV (intravenous) line. It does not need to be replaced as often as a standard IV. This means less pain and fewer needlesticks during treatment. But central lines come with a risk of infection. This sheet tells you more about central line infections and what hospitals are doing to prevent them. And it explains how an infection is treated, if one occurs. Types of central lines With a central line, a catheter is inserted into your body through a vein that leads to the large vein near the heart (vena cava). Types of central lines and their risk of infection are listed below. Which type is best for you depends on your needs and your overall health. Your healthcare provider cantell you which type of line you need, and why. Peripherally inserted central catheter (PICC).This is placed in a large vein in the upper arm, or near the bend of the elbow. Subclavian line. Thisis placed in a vein that runs behind the collarbone. Internal jugular line.This is placed into a large vein in the neck. Infection risk is higher than with a PICC or subclavian line, but lower than with a femoral line. Femoral line.This may be placed in a large vein in the groin. This site is generally not usedbecause of an increased risk for infection. Tunneled catheter. This is run through the soft tissue under the skin before it enters a vein. A small cuff helps hold the catheter in place. Both the tunnel and the cuff help prevent infection. This type of catheter may be placed in any of the above locations. Port. This small device is placed completely under the skin on the arm or chest. Its connectedto a catheter that is threaded into the vena cava. Types of infections A central line provides a direct path into your bloodstream. This gives germs possible access into your body. All types of central lines are associated with some risk of infection. Often, the germs that cause a central line infection come from your own skin. There are 2 possible types of infection: Local infection. This can occur where the central line enters your body. Symptoms include redness, pain, or swelling at or near the catheter site, pain or tenderness along the path of the catheter, and drainage from the skin around the catheter. Systemic infection (also called bacteremia). This can occur if germs get into the bloodstream. This is very serious and can be fatal. Symptoms include sudden fever, shaking chills, a racing heartbeat, confusion, change in behavior , and a skin rash. Risk factors for infection Anyone who has a central line can get an infection. Your risk is higher if you: Are in the intensive care unit (ICU). Have a weakened immune system or serious illness. Are receiving bone marrow or chemotherapy. Have the line for an extended time. Have a central line in your neck or groin. How central line infections are treated Treatment depends on the type of central line, how severe the infection is, and your overall health.Your healthcare provider will prescribe antibiotics to fight the infection. The line may also need to be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 Chest compressions and electrical intervention okay Chief Complaint: Patient is a 63 year old male admitted to the hospital with pseudomonas pneumonia and right upper lobe abscess. Subjective: He remains medically stable. No acute events overnight. ROS: Patient denies any chest pain, abdominal pain, nausea, vomiting, headache or dizziness. He endorses some shortness of breath. Objective: Vital signs in last 24 hours: Vitals Vitals: 01/30/19 0821 01/30/19 0946 01/30/19 1542 01/30/19 1912 BP: 116/83 125/83 120/75 Pulse: 86 88 87 94 Resp: 16 14 16 20 Temp: 98.1 F (36.7 C) 98.9 F (37.2 C) 99.7 F (37.6 C) SpO2: 93% 94% 97% 97% Weight: Height: Weight change: Vitals Min/Max Last 24 Hours Vital Signs Min/Max (last 24 hours) Flowsheet Row Name Min Max Temp 97.9 F (36.6 C) 99.7 F (37.6 C) BP: Systolic 116 125 BP: Diastolic 75 83 Pulse 86 94 Resp 14 20 SpO2 93 % 97 % Intake and Output Last 24 Hours 01/29 0700 - 01/30 0659 In: 1532 Out: 1450 Physical Exam: General Appearance: alert, well appearing, and in no distress Mental Status: oriented to person, place, and time Chest: Decreased breath sounds to the base of right side, good air entry to left base. Lungs clear to auscultation. He does have mild increase work of breathing. Heart: normal rate, regular rhythm, normal S1, S2, no murmur Abdomen: soft, nontender, nondistended, bowel sounds heard. Neurological: normal speech, no gross sensory or motor deficits noted Extremities: No pedal edema, no tenderness Associated attestation - Osito Vargas MD - 02/07/2019 11:52 PM CDTMrCucaRyan was seen and discussed with ; I personally interviewed and examined the patient. I agree with 's diagnosis and management. 63yr male with recurrent pseudomonal pneumonia c/b lung abscess, now s/p right thoracotomy and rightupper lobectomy on 02/02/19. Cx resistant to carbapenem, Abx switched to Ceftazidime+Avibactam per ID. Pt was having depression symptoms and has some suicidal ideation which has improved now. Psych consult appreciated. CT surgery following - drains removed yesterday. Continue PT/OT, will need rehab placement on DC. Osito Vargas MD, Kaveh Becerra MD - 02/06/2019 6:18 PM CDT [facility]ist Daily Progress Note Assessment/Plan: #Pseudomonal Pneumonia #Lung abscess 2/2 Pneumonia -Cardiothoracic surgery following- Patient had Right thoracotomy and right upper lobectomy -Post-op Day 5 -Chest tubes are removed. -Scheduled nebs and EzPap Patient needs to get up to facilitate drainage of any pleural fluid. -ID following -Patients cultures came back for CRE- started on ceftazidime-avibactam 2500mg infusion every 8 hours -Anticipate will need IV Ceftazidime-avibactam on discharge -Pain management post-op with Dilaudid mg IV every hour PRN for severe pain -oxycodone 5 mg PRN Q3 hours for moderate pain. #Irritant dermatitis - likely fungal -Nystatin BID #Anemia -Patient is post-op day 5 of right thoracotomy and right upper lobectomy -Stable #Depressive disorder 2/2 medical conditions #anxiety disorder due to medical condition #Insomnia due to medical condition -Psychiatry evaluated today: -Increased Remeron to 30mg -Started Clonazepam 0.25 po QDprn prior to suction/procedures that increase anxiety -Psychology to see -Psychiatry will continue to follow Chronic Problems: -COPD: continue home breo-ellipta, prn albuterol -Urinary retention: continue home flomax, - maxwell cath d/c DVT prophylaxis: Heparin Disposition: Pt profiled to critical access hospitals/swing bed- Pending removal of chest tubes Code Status: Modified DNR, no intubation. Chest compressions and electrical intervention okay Chief Complaint: Patient is a 63 year old male with a PMH of COPD, prostate cancer , traumatic brain injury (November 2018) He was recently admitted to the hospital on 01/17 for pneumonia with SOB hemoptysis and hypoxia. He was found to have pseudomonas pneumonia and was treated with meropenem in hospital and discharged on levaquin. He presented yesterday with cough, hemoptysis, weakness and worsening short ness of breath. He was admitted for Pneumonia and right upper lobe abscess . Subjective: Today the patient states his breathing is much better, he states that he feels much better after thechest tubes have been removed, the pain in his chest wall is much better. Patients mood is improved as well. He denies fever, chest pain, headaches, chills, vomiting and diarrhea. Objective: Vital signs in last 24 hours: Vitals Vitals: 01/30/19 0821 01/30/19 0946 01/30/19 1542 01/30/19 1912 BP: 116/83 125/83 120/75 Pulse: 86 88 87 94 Resp: 16 14 16 20 Temp: 98.1 F (36.7 C) 98.9 F (37.2 C) 99.7 F (37.6 C) SpO2: 93% 94% 97% 97% Weight: Height: Weight change: Vitals Min/Max Last 24 Hours Vital Signs Min/Max (last 24 hours) Flowsheet Row Name Min Max Temp 97.9 F (36.6 C) 99.7 F (37.6 C) BP: Systolic 116 125 BP: Diastolic 75 83 Pulse 86 94 Resp 14 20 SpO2 93 % 97 % Intake and Output Last 24 Hours 01/29 0700 - 01/30 0659 In: 1532 Out: 1450 Physical Exam: General Appearance: alert, well appearing, and in no distress Mental Status: oriented to person, place, and time Chest:Decreased breath sonds bilaterally R>L Wheezing in the right upper lung field- Improved Heart: normal rate, regular rhythm, normal S1, S2, no murmur Abdomen: soft, nontender, nondistended, bowel sounds heard. Tenderness to palpation of the right chest wall Neurological: normal speech, no gross sensory or motor deficits noted Extremities: No pedal edema, no tenderness Associated attestation - Osito Vargas MD - 02/06/2019 11:06 PM CDTMrCucaRyan was seen and discussed with ; I personally interviewed and examined the patient. Iagree with 's diagnosis and management. 63yr male with recurrent pseudomonal pneumonia c/b lung abscess, now s/p right thoracotomy and rightupper lobectomy on 02/02/19. Cx resistant to carbapenem, Abx switched to Ceftazidime+Avibactam per ID. Pt was having depression symptoms and has some suicidal ideation which has improved now. Psych consult appreciated. CT surgery following - drains removed today. Patient feeling much better today. Osito Vargas MD, Michael Lr MD - 02/06/2019 7:39 AM CDT CVTS Progress Note POD #5 Subjective: Problems over the previous 24 hours: none. More productive cough. Still on small amount of oxygen. Objective: Temp: 97.7 F (36.5 C) | BP: 124/82 | Pulse: 101 | Resp: 16 | Pain Ratin (out of 10) | Weight: 65.2 kg (143 lb 11.8 oz) | O2 Device: NC - no humidity O2 Flow Rate (L/min): 2 l/min | SpO2: 97 % Maximum Temperatures (last 24 hours) Temperature Maximum Max Temp 99.6 F (37.6 C) #1 Right Chest Tube Output: 40 mL/24 hours - negative air leak on water seal #2 Right Chest Tube Output: 30 mL/24 hours - negative air leak on water seal Heart: tachycardic Lungs: coarse breath sounds bilaterally Incision: right chest clean, dry and intact Labs: CBC: WBC Date Value Ref Range Status 02/05/2019 6.0 4.0 - 11.0 K/uL Final 02/04/2019 9.3 4.0 - 11.0 K/uL Final Hemoglobin Date Value Ref Range Status 02/05/2019 7.4 (L) 13.5 - 17.5 g/dL Final 02/04/2019 8.0 (L) 13.5 - 17.5 g/dL Final Hematocrit Date Value Ref Range Status 02/05/2019 23.0 (L) 40.0 - 50.0 % Final 02/04/2019 24.3 (L) 40.0 - 50.0 % Final Platelet Count Date Value Ref Range Status 02/05/2019 215 140 - 400 K/uL Final 02/04/2019 218 140 - 400 K/uL Final Renal Function Panel: Sodium Date Value Ref Range Status 02/05/2019 136 135 - 145 meq/L Final 02/04/2019 132 (L) 135 - 145 meq/L Final Potassium Date Value Ref Range Status 02/05/2019 4.1 3.5 - 5.3 meq/L Final 02/04/2019 4.1 3.5 - 5.3 meq/L Final Chloride Date Value Ref Range Status 02/05/2019 92 (L) 99 - 110 meq/L Final 02/04/2019 92 (L) 99 - 110 meq/L Final CO2 Date Value Ref Range Status 02/05/2019 35 (H) 20 - 29 meq/L Final 02/04/2019 34 (H) 20 - 29 meq/L Final BUN Date Value Ref Range Status 02/05/2019 9 6 - 22 mg/dL Final 02/04/2019 7 6 - 22 mg/dL Final Creatinine Date Value Ref Range Status 02/05/2019 0.52 (L) 0.80 - 1.30 mg/dL Final 02/04/2019 0.51 (L) 0.80 - 1.30 mg/dL Final Glucose Date Value Ref Range Status 02/05/2019 122 (H) 70 - 100 mg/dL Final 02/04/2019 141 (H) 70 - 100 mg/dL Final Calcium Date Value Ref Range Status 02/05/2019 8.3 (L) 8.5 - 10.5 mg/dL Final 02/04/2019 8.2 (L) 8.5 - 10.5 mg/dL Final Phosphorus Date Value Ref Range Status 02/02/2019 3.0 2.5 - 4.5 mg/dL Final 02/01/2019 3.8 2.5 - 4.5 mg/dL Final Albumin Date Value Ref Range Status 02/02/2019 2.6 (L) 3.5 - 5.0 g/dL Final 02/01/2019 2.9 (L) 3.5 - 5.0 g/dL Final Path: No malignancy, large abscess with exposed artery Chest X-Ray: improved volume loss, trachea midline today Assessment: S/P thoracotomy, right upper lobe lobectomy Plan: Chest tubes removed Continue scheduled nebs and EzPap another day Other cares per primary team Jessica Sharp MD - 02/05/2019 8:06 PM CDT INFECTIOUS DISEASE PROGRESS Impression - Right upper lobe lung abscess s/p right upper lobe lobectomy on 02/01/19, intra -operative culture with 3 strains of pseudomonas aeruginosa including a carbapenem resistant strain - Recent admission for Pseudomonas aeruginosa bacteremia and pneumonia Plan - Continue ceftazidime-avibactam 2.5g IV Q8H - Anticipate discharge on IV ceftazidime-avibactam, please call for discharge IV antibiotic order once patient is ready for discharge Jessica Ferrera MD Infectious Disease Pager [phone] Interval History S/p right upper lobe lobectomy on 02/01/19, He has been afebrile. No nausea, vomiting or diarrhea He is coughing up clear phlegm Right chest tubes still place Antibiotics Antibiotics (From admission, onward) Start Stop Route Frequency Ordered 02/04/19 1130 ceftazidime-avibactam (AVYCAZ) 2,500 mg in sodium chloride 0.9% 250 mL -- IV Every eight hours 02/04/19 1109 02/01/19 1215 ceFAZolin (ANCEF) 2000 mg/20 mL sterile water IV syringe ( ceFAZolin (ANCEF) 2 g IV (for patient weight 120 kg OR LESS or weight NOT available)) 02/01 1320 IV Give in OR 01/31/19 1207 01/28/19 0600 meropenem (MERREM) 500 mg in sodium chloride 0.9% 100 mL ( meropenem (MERREM) 1 g IVnow followed by 500 mg q6h) Status: Discontinued 02/04 1038 IV Every six hours 01/27/19 2248 01/27/19 2250 meropenem (MERREM) 1,000 mg in sodium chloride 0.9% 100 mL ( meropenem (MERREM) 1 g IV now followed by 500 mg q6h) 01/28 0019 IV Now 01/27/19 2248 All other medications reviewed in Epic. Physical Exam Current Vital Signs Temp: 99.6 F (37.6 C) BP: 110/72 Pulse: 115 O2 Device: NC - no humidity O2 Flow Rate (L/min): 1 l/min Resp: 16 Pain Ratin (out of 10) Weight: 65.2 kg (143 lb 11.8 oz) SpO2: 96 % Maximum Temperatures (last 24 hours) Temperature Maximum Max Temp 99.6 F (37.6 C) Physical Exam General: cooperative, no distress Lungs: Decreased breath sounds bilaterally, + chest tubes, s/p right thoracotomy with right upper lobe lobectomy Heart: regular Abdomen: soft, BS+, no tenderness Msk: no swelling of joints, no edema Skin: no suspicious rashes Neuro: Alert, follows commands Microbiology BLOOD: 01/17/19 - Pseudomonas aeruginosa 01/19/19 - No growth 01/27/19 - No growth URINE: 01/17/19 - Klebsiella pneumoniae 02/01/19 Pleural fluid - Pseudomonas aeruginosa (3 strains including a CR strain) Labs and Imaging Estimated Creatinine Clearance: 130.6 mL/min (A) (based on SCr of 0.52 mg/dL (L) ). Lab Results Component Value Date WBC 6.0 02/05/2019 NUCRBC 0 02/04/2019 RBC 2.48 (L) 02/05/2019 HEMOGLOBIN 7.4 (L) 02/05/2019 HEMATOCRIT 23.0 (L) 02/05/2019 MCV 92.7 02/05/2019 MCH 29.8 02/05/2019 MCHC 32.2 02/05/2019 PLTCOUNT 215 02/05/2019 NEUTROPCT 84.3 02/04/2019 BANDPCT 21.0 01/19/2019 LYMPHSPCT 9.1 02/04/2019 MONOSPCT 6.5 02/04/2019 EOSPCT 0.0 02/04/2019 BASOPHILPCT 0.1 02/04/2019 Lab Results Component Value Date GLUCOSE 122 (H) 02/05/2019 BUN 9 02/05/2019 CREATSERUM 0.52 (L) 02/05/2019 BCRATIO 17.3 02/05/2019 NA 136 02/05/2019 POTASSIUM 4.1 02/05/2019 CL 92 (L) 02/05/2019 CO2 35 (H) 02/05/2019 CA 8.3 (L) 02/05/2019 PROTEINTOTAL 5.2 (L) 01/29/2019 ALBUMIN 2.6 (L) 02/02/2019 ALKPHOS 120 01/29/2019 AST 28 01/29/2019 ALT 40 01/29/2019 BILITOTAL 0.6 01/29/2019 Medical Decision Making Total unit / floor time 35 minutes. Over 50% of total time used in counseling and coordination of care. ónica Stanley, PHD - 02/05/2019 2:37 PM CDTPatient declined psychology consult on third try, noting he was about to visit with grandchildren. Will re-attempt on Friday. Kaveh Peres MD - 02/05/2019 1:27 PM CDT [facility]ist Daily Progress Note Assessment/Plan: #Pseudomonal Pneumonia #Lung abscess 2/2 Pneumonia -Cardiothoracic surgery following- Patient had Right thoracotomy and right upper lobectomy -Post-op Day 4 -Cardiothoracic surgery notes chest tube output down and no air leaks, but progressive volume loss on right. -Pt not coughing well and continues to have significant deep secretions. - Cardiothoracic surgery will add scheduled nebs and EzPap today. Need to leave both tubes today. Patient needs to get up to facilitate drainage of any pleural fluid. 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 #Irritant dermatitis - likely fungal -Nystatin BID #Anemia -Patient is post-op day three of right thoracotomy and right upper lobectomy -Hemoglobin has dropped to 7.4 from 8.0. Patient is on transfusion parameters. 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 Chest compressions and electrical intervention okay Chief Complaint: Patient is a 63 year old male with a PMH of COPD, prostate cancer , traumatic brain injury (November 2018) He was recently admitted to the hospital on 01/17 for pneumonia with SOB hemoptysis and hypoxia. He was found to have pseudomonas pneumonia and was treated with meropenem in hospital and discharged on levaquin. He presented yesterday with cough, hemoptysis, weakness and worsening short ness of breath. He was admitted for Pneumonia and right upper lobe abscess . Subjective: Today the patient states that he has a cough, he has not coughed up any blood, but has noticed a cough. He states that he is not able to cough with force as it hurts when he coughs where the chest tubes are inserted. He states that his breathing feels better, but is still short of breath at times at rest and during exertion, and notices his breathing is worst when he feels anxious. Patient complains that PT is very difficult, but understands that is something he needs to do. Objective: Vital signs in last 24 hours: Vitals Vitals: 01/30/19 0821 01/30/19 0946 01/30/19 1542 01/30/19 1912 BP: 116/83 125/83 120/75 Pulse: 86 88 87 94 Resp: 16 14 16 20 Temp: 98.1 F (36.7 C) 98.9 F (37.2 C) 99.7 F (37.6 C) SpO2: 93% 94% 97% 97% Weight: Height: Weight change: Vitals Min/Max Last 24 Hours Vital Signs Min/Max (last 24 hours) Flowsheet Row Name Min Max Temp 97.9 F (36.6 C) 99.7 F (37.6 C) BP: Systolic 116 125 BP: Diastolic 75 83 Pulse 86 94 Resp 14 20 SpO2 93 % 97 % Intake and Output Last 24 Hours 01/29 0700 - 01/30 0659 In: 1532 Out: 1450 Physical Exam: General Appearance: alert, well appearing, and in no distress Mental Status: oriented to person, place, and time Chest:Decreased breath sonds bilaterally R>L Wheezing in the right upper lung field. Heart: normal rate, regular rhythm, normal S1, S2, no murmur Abdomen: soft, nontender, nondistended, bowel sounds heard. Tenderness to palpation of the right chest wall Neurological: normal speech, no gross sensory or motor deficits noted Extremities: No pedal edema, no tenderness Associated attestation - Osito Vargas MD - 02/05/2019 9:00 PM CDTMrNaty was seen and discussed with ; I personally interviewed and examined the patient. Iagree with 's diagnosis and management. 63yr male with recurrent pseudomonal pneumonia c/b lung abscess, now s/p right thoracotomy and rightupper lobectomy on 02/02/19. Cx resistant to carbapenem, Abx switched to Ceftazidime+Avibactam per ID. Appreciate ID help! Pt is having depression symptoms and has some suicidal ideation. Psych consultappreciated. CT surgery following - drains needs to be in place. Appreciate their help! Osito Vargas MD, MPHKhan, Vitor Monroe MD - 02/05/2019 9:52 AM CDT Psychiatry/Eating Disorder Progress [place] Membreno is a 63yr old male admitted on 01/27/2019. Assessment / Plan Clinical Formulation: 63-year-old male with past history of depression admitted to the medical floorfor pseudomonas pneumonia with lung abscess psychiatry consulted for increasing depression and anxiety. Patient continues to feels depressed and anxious but says that it is a little improved today as he slept well overnight. Also reports better appetite. Continues to deny Suicidal ideation/plan. Future orientated and hopeful that he will get better for his 12 grandchildren. Remeron can be titrated upto 30mg HS as patient seems to be getting some benefit from it. Affect appears to be better today aswell. Pt continues to struggle with high anxiety related to suctioning/procedures and a low dosage of clonazepam 0.25mg qdprn could be beneficial Diagnosis: MDD recurrent, severe without psychotic features General Anxiety disorder Insomnia, other Plan: -Increase Remeron to 30mg HS -Start Clonazepam 0.25mg po QDprn prior to suction/procedures that increase anxiety -Psychology to see -Psychiatry will continue to follow HPI / History / ROS Interval History When asked how patient is doing he states " Should I keep going or the hell with it". Asked what he means by this and states that this morning was very difficult for him as he had a lot of build up in his lungs and they had to suction a lot of it out. Says that this was very stressful for him as he was became very distressed/panicked. Said that he felt horrible afterwards and thinks that it is his fault that his lungs are not clearing due to him not coughing enough. Says that he thinks his depression was a little better this morning after starting remeron last night, but worsened after suctioning this morning. Says he slept very well "the best since being in the hospital" last night and that his appetite this morning at breakfast was improved as well. Overall feels medication helped and denies any side effects. Review of Systems Constitutional: Positive for appetite change (improved) and fatigue (improved). HENT: Negative. Respiratory: Positive for shortness of breath. Cardiovascular: Positive for chest pain. Musculoskeletal: Positive for back pain. Psychiatric/Behavioral: Positive for decreased concentration, dysphoric mood and sleep disturbance (improved). Negative for hallucinations and suicidal ideas. The patient is nervous/anxious. Physical / Results Current Vital Signs Temp: 98.1 F (36.7 C) BP: 119/80 Weight: 65.2 kg (143 lb 11.8 oz) SpO2: 94 % Resp: 18 Pulse: 108 Current BMI (>50=increased risk): 21.29 O2 Device: Room Air O2 Flow Rate (L/min): 1 l/min Physical Exam General appearance/behavior: white, male, appropriate, good eye contact, cooperative, normal energy,smiles intermittently Gait and station: N/A Motor: normal muscle strength and tone with no atrophy or abnormal movement and no unusual movements Speech: normal articulation and coherence with spontaneous elaboration Thought process: normal rate and logical content and normal abstraction Association: intact Thought content: demonstrates neither hallucinations or delusions and denies hallucinations or delusions Judgment/insight:intact Memory: recent memory: Normal and remote memory: Normal Attention/concentration: intact to reverse spelling Orientation: orientated to person, place, time and situation Language: intact to naming Fund of knowledge: intact to current events Mood: depressed Affect: improved depressed affect Safety: Denies suicidal/homicidal ideation Associated attestation - Tin Cook MD - 02/05/2019 7:41 PM CDTI discussed the case with the resident and supervised medical decision making in consultation setting. I did not examine the patient personally. I agree with the resident's documentation, assessment,and plan.Michael Monique MD - 2018 8:41 AM CDTCVTS STAFF PROGRESS NOTE Pt seen at bedside. Agree with progress note and plan as written by Amarilys Amaro PA-C CT output down and no air leaks, but progressive volume loss on right. Pt not coughing well and continues to have significant deep secretions. Will add scheduled nebs and EzPap today. Need to leave both tubes today. Patient needs to get up to facilitate drainage of any pleural fluid. Amarilys Rollins PA-C - 2018 7:26 AM CDT CVTS Progress Note POD #4 Subjective: Problems over the previous 24 hours: none. Today, patient is in better spirits today. He said he slept well which helped Objective: Temp: 98.8 F (37.1 C) | BP: 107/67 | Pulse: 114 | Resp: 18 | Pain Ratin (out of 10) | Weight: 65.2 kg (143 lb 11.8 oz) | O2 Device: NC - cool humidity O2 Flow Rate (L/min): 1 l/min | SpO2: 96 % Maximum Temperatures (last 24 hours) Temperature Maximum Max Temp 98.8 F (37.1 C) #1 Right Chest Tube Output: 80 mL/24 hours - negative air leak on water seal #2 Right Chest Tube Output: 60 mL/24 hours - negative air leak on water seal Heart: tachycardic Lungs: coarse breath sounds bilaterally Incision: right chest clean, dry and intact Labs: CBC: WBC Date Value Ref Range Status 02/05/2019 6.0 4.0 - 11.0 K/uL Final 02/04/2019 9.3 4.0 - 11.0 K/uL Final Hemoglobin Date Value Ref Range Status 02/05/2019 7.4 (L) 13.5 - 17.5 g/dL Final 02/04/2019 8.0 (L) 13.5 - 17.5 g/dL Final Hematocrit Date Value Ref Range Status 02/05/2019 23.0 (L) 40.0 - 50.0 % Final 02/04/2019 24.3 (L) 40.0 - 50.0 % Final Platelet Count Date Value Ref Range Status 02/05/2019 215 140 - 400 K/uL Final 02/04/2019 218 140 - 400 K/uL Final Renal Function Panel: Sodium Date Value Ref Range Status 02/05/2019 136 135 - 145 meq/L Final 02/04/2019 132 (L) 135 - 145 meq/L Final Potassium Date Value Ref Range Status 02/05/2019 4.1 3.5 - 5.3 meq/L Final 02/04/2019 4.1 3.5 - 5.3 meq/L Final Chloride Date Value Ref Range Status 02/05/2019 92 (L) 99 - 110 meq/L Final 02/04/2019 92 (L) 99 - 110 meq/L Final CO2 Date Value Ref Range Status 02/05/2019 35 (H) 20 - 29 meq/L Final 02/04/2019 34 (H) 20 - 29 meq/L Final BUN Date Value Ref Range Status 02/05/2019 9 6 - 22 mg/dL Final 02/04/2019 7 6 - 22 mg/dL Final Creatinine Date Value Ref Range Status 02/05/2019 0.52 (L) 0.80 - 1.30 mg/dL Final 02/04/2019 0.51 (L) 0.80 - 1.30 mg/dL Final Glucose Date Value Ref Range Status 02/05/2019 122 (H) 70 - 100 mg/dL Final 02/04/2019 141 (H) 70 - 100 mg/dL Final Calcium Date Value Ref Range Status 02/05/2019 8.3 (L) 8.5 - 10.5 mg/dL Final 02/04/2019 8.2 (L) 8.5 - 10.5 mg/dL Final Phosphorus Date Value Ref Range Status 02/02/2019 3.0 2.5 - 4.5 mg/dL Final 02/01/2019 3.8 2.5 - 4.5 mg/dL Final Albumin Date Value Ref Range Status 02/02/2019 2.6 (L) 3.5 - 5.0 g/dL Final 02/01/2019 2.9 (L) 3.5 - 5.0 g/dL Final Path: pending Chest X-Ray: stable, volume loss Assessment: S/P thoracotomy, right upper lobe lobectomy Plan: Wean oxygen as tolerted Pulmonary toilet Home meds Out of bed to chair Ambulate Water seal drainage Other cares per primary team Jessica Sharp MD - 02/04/2019 4:35 PM CDT INFECTIOUS DISEASE PROGRESS Impression - Right upper lobe lung abscess s/p right upper lobe lobectomy on 02/01/19, intra -operative culture with 3 strains of pseudomonas aeruginosa including a carbapenem resistant strain - Recent admission for Pseudomonas aeruginosa bacteremia and pneumonia Plan - Discontinue meropenem - Start ceftazidime-avibactam 2.5g IV Q8H - Follow intra-operative cultures Jessica Ferrera MD Infectious Disease Pager [phone] Interval History S/p right upper lobe lobectomy on 02/01/19, He has been afebrile. No nausea, vomiting or diarrhea Antibiotics Antibiotics (From admission, onward) Start Stop Route Frequency Ordered 02/04/19 1130 ceftazidime-avibactam (AVYCAZ) 2,500 mg in sodium chloride 0.9% 250 mL -- IV Every eight hours 02/04/19 1109 02/01/19 1215 ceFAZolin (ANCEF) 2000 mg/20 mL sterile water IV syringe ( ceFAZolin (ANCEF) 2 g IV (for patient weight 120 kg OR LESS or weight NOT available)) 02/01 1320 IV Give in OR 01/31/19 1207 01/28/19 0600 meropenem (MERREM) 500 mg in sodium chloride 0.9% 100 mL ( meropenem (MERREM) 1 g IVnow followed by 500 mg q6h) Status: Discontinued 02/04 1038 IV Every six hours 01/27/19 2248 01/27/19 2250 meropenem (MERREM) 1,000 mg in sodium chloride 0.9% 100 mL ( meropenem (MERREM) 1 g IV now followed by 500 mg q6h) 01/28 0019 IV Now 01/27/19 2248 All other medications reviewed in [facility]. Physical Exam Current Vital Signs Temp: 98.3 F (36.8 C) BP: 115/76 Pulse: 109 O2 Device: NC - cool humidity O2 Flow Rate (L/min): 0.5 l/min Resp: 18 Pain Ratin (out of 10) Weight: 65.2 kg (143 lb 11.8 oz) SpO2: 93 % Maximum Temperatures (last 24 hours) Temperature Maximum Max Temp 98.6 F (37 C) Physical Exam General: cooperative, no distress Lungs: Decreased breath sounds bilaterally, + chest tubes, s/p right thoracotomy with right upper lobe lobectomy Heart: regular Abdomen: soft, BS+, no tenderness Msk: no swelling of joints, no edema Skin: no suspicious rashes Neuro: Alert, follows commands Microbiology BLOOD: 01/17/19 - Pseudomonas aeruginosa 01/19/19 - No growth 01/27/19 - No growth URINE: 01/17/19 - Klebsiella pneumoniae 02/01/19 Pleural fluid - Pseudomonas aeruginosa (3 strains including a CR strain) Labs and Imaging Estimated Creatinine Clearance: 133.2 mL/min (A) (based on SCr of 0.51 mg/dL (L) ). Lab Results Component Value Date WBC 9.3 02/04/2019 NUCRBC 0 02/04/2019 RBC 2.65 (L) 02/04/2019 HEMOGLOBIN 8.0 (L) 02/04/2019 HEMATOCRIT 24.3 (L) 02/04/2019 MCV 91.7 02/04/2019 MCH 30.6 02/04/2019 MCHC 33.3 02/04/2019 PLTCOUNT 218 02/04/2019 NEUTROPCT 84.3 02/04/2019 BANDPCT 21.0 01/19/2019 LYMPHSPCT 9.1 02/04/2019 MONOSPCT 6.5 02/04/2019 EOSPCT 0.0 02/04/2019 BASOPHILPCT 0.1 02/04/2019 Lab Results Component Value Date GLUCOSE 141 (H) 02/04/2019 BUN 7 02/04/2019 CREATSERUM 0.51 (L) 02/04/2019 BCRATIO 13.7 02/04/2019 NA 132 (L) 02/04/2019 POTASSIUM 4.1 02/04/2019 CL 92 (L) 02/04/2019 CO2 34 (H) 02/04/2019 CA 8.2 (L) 02/04/2019 PROTEINTOTAL 5.2 (L) 01/29/2019 ALBUMIN 2.6 (L) 02/02/2019 ALKPHOS 120 01/29/2019 AST 28 01/29/2019 ALT 40 01/29/2019 BILITOTAL 0.6 01/29/2019 Medical Decision Making Total unit / floor time 35 minutes. Over 50% of total time used in counseling and coordination of care. Kaveh Peres MD - 02/04/2019 4:19 PM CDT [facility] Hospitalist Daily Progress Note Assessment/Plan: #Pseudomonal Pneumonia #Lung abscess 2/2 Pneumonia -Cardiothoracic surgery following- Patient had Right thoracotomy and right upper lobectomy -Post-op Day 3 -ID following -2 chest tubes in- 250 mL drained since yesterday -Patients cultures came back for CRE- started on ceftazidime-avibactam 2500mg infusion every 8 hours -Patient on PRN ALBUTEROL q4 hrs for SOB and [id number] -Pain management post-op with Dilaudid mg IV every hour PRN for severe pain -oxycodone 5 mg PRN Q3 hours for moderate pain. 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 Chest compressions and electrical intervention okay Chief Complaint: Patient is a 63 year old male with a PMH of COPD, prostate cancer , traumatic brain injury (November 2018) He was recently admitted to the hospital on 01/17 for pneumonia with SOB hemoptysis and hypoxia. He was found to have pseudomonas pneumonia and was treated with meropenem in hospital and discharged on levaquin. He presented yesterday with cough, hemoptysis, weakness and worsening short ness of breath. He was admitted for Pneumonia and right upper lobe abscess . Subjective: Today the patient denies shortness of breath and cough, but does endorse right sided chest wall pain. He states that he feels as he is breathing better but still gets SOB. He disclosed that for over a month he has been feeling down and depressed. He feels that his is never going to get better and sayshe feels like giving up. He has stated that he has though about suicide and how he could do it , but has not made any plans, or any attempts. He states that he wants help with this, and is finally readyto seek it. Patient is willing to speak to a psychiatrist, and try medications. Objective: Vital signs in last 24 hours: Vitals Vitals: 01/30/19 0821 01/30/19 0946 01/30/19 1542 01/30/19 1912 BP: 116/83 125/83 120/75 Pulse: 86 88 87 94 Resp: 16 14 16 20 Temp: 98.1 F (36.7 C) 98.9 F (37.2 C) 99.7 F (37.6 C) SpO2: 93% 94% 97% 97% Weight: Height: Weight change: Vitals Min/Max Last 24 Hours Vital Signs Min/Max (last 24 hours) Flowsheet Row Name Min Max Temp 97.9 F (36.6 C) 99.7 F (37.6 C) BP: Systolic 116 125 BP: Diastolic 75 83 Pulse 86 94 Resp 14 20 SpO2 93 % 97 % Intake and Output Last 24 Hours 01/29 0700 - 01/30 0659 In: 1532 Out: 1450 Physical Exam: General Appearance: alert, well appearing, and in no distress Mental Status: oriented to person, place, and time Chest:Decreased breath sonds bilaterally R Wheezing in the right upper lung field. Heart: normal rate, regular rhythm, normal S1, S2, no murmur Abdomen: soft, nontender, nondistended, bowel sounds heard. Tenderness to palpation of the right chest wall Neurological: normal speech, no gross sensory or motor deficits noted Extremities: No pedal edema, no tenderness Associated attestation - Osito Vargas MD - 02/04/2019 9:36 PM CDTMrNaty was seen and discussed with ; I personally interviewed and examined the patient. Iagree with 's diagnosis and management. 63yr male with recurrent pseudomonal pneumonia c/b lung abscess, now s/p right thoracotomy and rightupper lobectomy on 02/02/19. Cx resistant to carbapenem, Abx switched to Ceftazidime+Avibactam per ID. Appreciate ID help! Pt is having depression symptoms and has some suicidal ideation. Psych consult. Osito Vargas MD, Michael Lr MD - 02/04/2019 1:18 PM CDTCVTS STAFF PROGRESS NOTE Pt seen at bedside. Agree with progress note and plan as written by Amarilys Amaro PA-C Air leak resolved. CXR stable with small apical air space. Cultures noted. Water seal tubes today. Amarilys Rollins PA-C - 02/04/2019 7:12 AM CDT CVTS Progress Note POD #3 Subjective: Problems over the previous 24 hours: none. Today, patient is very depressed this morning. He states he has been awake all day thinking about how depressed he is and just wants to give up Objective: Temp: 98.3 F (36.8 C) | BP: 117/78 | Pulse: 101 | Resp: 18 | Pain Ratin (out of 10) | Weight: 65.2 kg (143 lb 11.8 oz) | O2 Device: Room Air O2 Flow Rate (L/min): 1 l/min | SpO2: 97 % Maximum Temperatures (last 24 hours) Temperature Maximum Max Temp 99.5 F (37.5 C) #1 Right Chest Tube Output: 70 mL/24 hours - negative air leak on 10 cm Suction #2 Right Chest Tube Output: 180 mL/24 hours - negative air leak on 10 cm Suction Heart: tachycardic Lungs: coarse breath sounds bilaterally Incision: right chest OR dressing in place Labs: CBC: WBC Date Value Ref Range Status 02/04/2019 9.3 4.0 - 11.0 K/uL Final 02/03/2019 8.1 4.0 - 11.0 K/uL Final Hemoglobin Date Value Ref Range Status 02/04/2019 8.1 (L) 13.5 - 17.5 g/dL Final 02/04/2019 8.1 (L) 13.5 - 17.5 g/dL Final Hematocrit Date Value Ref Range Status 02/04/2019 24.3 (L) 40.0 - 50.0 % Final 02/03/2019 23.1 (L) 40.0 - 50.0 % Final Platelet Count Date Value Ref Range Status 02/04/2019 218 140 - 400 K/uL Final 02/03/2019 202 140 - 400 K/uL Final Renal Function Panel: Sodium Date Value Ref Range Status 02/04/2019 132 (L) 135 - 145 meq/L Final 02/02/2019 132 (L) 135 - 145 meq/L Final Potassium Date Value Ref Range Status 02/04/2019 4.1 3.5 - 5.3 meq/L Final 02/02/2019 4.5 3.5 - 5.3 meq/L Final Chloride Date Value Ref Range Status 02/04/2019 92 (L) 99 - 110 meq/L Final 02/02/2019 100 99 - 110 meq/L Final CO2 Date Value Ref Range Status 02/04/2019 34 (H) 20 - 29 meq/L Final 02/02/2019 26 20 - 29 meq/L Final BUN Date Value Ref Range Status 02/04/2019 7 6 - 22 mg/dL Final 02/02/2019 11 6 - 22 mg/dL Final Creatinine Date Value Ref Range Status 02/04/2019 0.51 (L) 0.80 - 1.30 mg/dL Final 02/02/2019 0.64 (L) 0.80 - 1.30 mg/dL Final Glucose Date Value Ref Range Status 02/04/2019 141 (H) 70 - 100 mg/dL Final 02/02/2019 153 (H) 70 - 100 mg/dL Final Calcium Date Value Ref Range Status 02/04/2019 8.2 (L) 8.5 - 10.5 mg/dL Final 02/02/2019 8.0 (L) 8.5 - 10.5 mg/dL Final Phosphorus Date Value Ref Range Status 02/02/2019 3.0 2.5 - 4.5 mg/dL Final 02/01/2019 3.8 2.5 - 4.5 mg/dL Final Albumin Date Value Ref Range Status 02/02/2019 2.6 (L) 3.5 - 5.0 g/dL Final 02/01/2019 2.9 (L) 3.5 - 5.0 g/dL Final Path: pending Chest X-Ray: stable Assessment: S/P thoracotomy, right upper lobe lobectomy Plan: Pulmonary toilet Home meds Out of bed to chair Ambulate Water seal drainage Other cares per primary team Jessica Sharp MD - 02/03/2019 6:55 PM CDT INFECTIOUS DISEASE PROGRESS Impression - Right upper lobe lung abscess s/p right upper lobe lobectomy on 02/01/19 - Recent admission for Pseudomonas aeruginosa bacteremia and pneumonia Plan - Continue meropenem 500mg IV Q6H - Follow intra-operative cultures Jessica Ferrera MD Infectious Disease Pager [phone] Interval History S/p right upper lobe lobectomy on 02/01/19, No cough today He has been afebrile. No nausea, vomiting or diarrhea Antibiotics Antibiotics (From admission, onward) Start Stop Route Frequency Ordered 02/01/19 1215 ceFAZolin (ANCEF) 2000 mg/20 mL sterile water IV syringe ( ceFAZolin (ANCEF) 2 g IV (for patient weight 120 kg OR LESS or weight NOT available)) 02/01 1320 IV Give in OR 01/31/19 1207 01/28/19 0600 meropenem (MERREM) 500 mg in sodium chloride 0.9% 100 mL ( meropenem (MERREM) 1 g IVnow followed by 500 mg q6h) -- IV Every six hours 01/27/19 2248 01/27/19 2250 meropenem (MERREM) 1,000 mg in sodium chloride 0.9% 100 mL ( meropenem (MERREM) 1 g IV now followed by 500 mg q6h) 01/28 0019 IV Now 01/27/19 2248 All other medications reviewed in [facility]. Physical Exam Current Vital Signs Temp: 98.5 F (36.9 C) BP: 98/73 Pulse: 109 O2 Device: NC - no humidity O2 Flow Rate (L/min): 1 l/min Resp: 18 Pain Ratin (out of 10) Weight: 65.2 kg (143 lb 11.8 oz) SpO2: 94 % Maximum Temperatures (last 24 hours) Temperature Maximum Max Temp 99.5 F (37.5 C) Physical Exam General: cooperative, no distress Lungs: Decreased breath sounds bilaterally, + chest tubes, s/p right thoracotomy with right upper lobe lobectomy Heart: regular Abdomen: soft, BS+, no tenderness Msk: no swelling of joints, no edema Skin: no suspicious rashes Neuro: Alert, follows commands Microbiology BLOOD: 01/17/19 - Pseudomonas aeruginosa 01/19/19 - No growth 01/27/19 - No growth URINE: 01/17/19 - Klebsiella pneumoniae 02/01/19 Pleural fluid - Pseudomonas aeruginosa Labs and Imaging Estimated Creatinine Clearance: 106.1 mL/min (A) (based on SCr of 0.64 mg/dL (L) ). Lab Results Component Value Date WBC 8.1 02/03/2019 NUCRBC 0 02/03/2019 RBC 2.51 (L) 02/03/2019 HEMOGLOBIN 8.0 (L) 02/03/2019 HEMATOCRIT 23.1 (L) 02/03/2019 MCV 92.0 02/03/2019 MCH 30.3 02/03/2019 MCHC 32.9 02/03/2019 PLTCOUNT 202 02/03/2019 NEUTROPCT 80.1 02/03/2019 BANDPCT 21.0 01/19/2019 LYMPHSPCT 13.4 02/03/2019 MONOSPCT 6.3 02/03/2019 EOSPCT 0.1 02/03/2019 BASOPHILPCT 0.1 02/03/2019 Lab Results Component Value Date GLUCOSE 153 (H) 02/02/2019 BUN 11 02/02/2019 CREATSERUM 0.64 (L) 02/02/2019 BCRATIO 17.2 02/02/2019 NA 132 (L) 02/02/2019 POTASSIUM 4.5 02/02/2019 CL 100 02/02/2019 CO2 26 02/02/2019 CA 8.0 (L) 02/02/2019 PROTEINTOTAL 5.2 (L) 01/29/2019 ALBUMIN 2.6 (L) 02/02/2019 ALKPHOS 120 01/29/2019 AST 28 01/29/2019 ALT 40 01/29/2019 BILITOTAL 0.6 01/29/2019 Medical Decision Making Total unit / floor time 25 minutes. Over 50% of total time used in counseling and coordination of care. Kaveh Peres MD - 02/03/2019 2:12 PM CDT [facility] Hospitalist Daily Progress Note Assessment/Plan: #Pseudomonal Pneumonia #Lung abscess 2/2 Pneumonia -Cardiothoracic surgery following- Patient had Right thoracotomy and right upper lobectomy -Post-op Day 2 -Patient has 2 chest tubes in and has drained, on 02/01- drained a total of 528 ml and on 02/02 drained a total of 470 ml -Meropenem 500mg every 6 hours- continued -ID following -Blood cultures-showed no growth -Mucinex PRN -Patient on PRN ALBUTEROL q4 hrs for SOB and [id number] -Pain management post-op with Dilaudid mg IV every hour PRN for severe pain and -oxycodone 5 mg PRN Q3 hours for moderate pain. #Irritant dermatitis - likely fungal -Nystatin BID #Anemia -Patient is post-op day two of right thoracotomy and right upper lobectomy -Patients Hb dropped from 8.2 to 7.6- patient was put on transfusion protocol - Check Hb Q8H Chronic Problems: -COPD: continue home breo-ellipta, prn albuterol -Urinary retention: continue home flomax, - maxwell cath d/c DVT prophylaxis: Heparin Disposition: Pending medical stability -Pt profiled to critical access hospitals/swing bed Code Status: Modified DNR, no intubation. Chest compressions and electrical intervention okay Chief Complaint: Patient is a 63 year old male with a PMH of COPD, prostate cancer , traumatic brain injury (November 2018) He was recently admitted to the hospital on 01/17 for pneumonia with SOB hemoptysis and hypoxia. He was found to have pseudomonas pneumonia and was treated with meropenem in hospital and discharged on levaquin. He presented yesterday with cough, hemoptysis, weakness and worsening short ness of breath. He was admitted for Pneumonia and right upper lobe abscess . Subjective: Overnight the patient said he was short of breath and anxious, but this morning he state he feels better than he has felt in a long time. He denies shortness of breath, chest pain, fever, headaches, nausea and vomiting. Objective: Vital signs in last 24 hours: Vitals Vitals: 01/30/19 0821 01/30/19 0946 01/30/19 1542 01/30/19 1912 BP: 116/83 125/83 120/75 Pulse: 86 88 87 94 Resp: 16 14 16 20 Temp: 98.1 F (36.7 C) 98.9 F (37.2 C) 99.7 F (37.6 C) SpO2: 93% 94% 97% 97% Weight: Height: Weight change: Vitals Min/Max Last 24 Hours Vital Signs Min/Max (last 24 hours) Flowsheet Row Name Min Max Temp 97.9 F (36.6 C) 99.7 F (37.6 C) BP: Systolic 116 125 BP: Diastolic 75 83 Pulse 86 94 Resp 14 20 SpO2 93 % 97 % Intake and Output Last 24 Hours 01/29 0700 - 01/30 0659 In: 1532 Out: 1450 Physical Exam: General Appearance: alert, well appearing, and in no distress Mental Status: oriented to person, place, and time Chest:Decreased breath sonds bilaterally R>L, , Wheezing in the right upper lung field. Heart: normal rate, regular rhythm, normal S1, S2, no murmur Abdomen: soft, nontender, nondistended, bowel sounds heard. Tenderness to palpation of the right chest wall Neurological: normal speech, no gross sensory or motor deficits noted Extremities: No pedal edema, no tenderness Associated attestation - Osito Vargas MD - 02/03/2019 9:47 PM CDTMrCucaRyan was seen and discussed with ; I personally interviewed and examined the patient. Iagree with 's diagnosis and management. 63yr male with recurrent pseudomonal pneumonia c/b lung abscess, now s/p right thoracotomy and rightupper lobectomy on 02/02/19. Patient feeling better. Continue Merrem. Improved significantly. Cont. PT/OT. Osito Vargas MD, Michael Lr MD - 02/03/2019 8:03 AM CDT CVTS Progress Note POD #2 Subjective: Problems over the previous 24 hours: nothing. Today, patient is complaining of nothing. Patient says he feels great, hasn't felt this good in a while. Objective: Temp: 98.1 F (36.7 C) | BP: 93/55 | Pulse: 95 | Resp: 18 | Pain Ratin ( out of 10) | Weight: 65.2 kg (143 lb 11.8 oz) | O2 Device: NC - no humidity O2 Flow Rate (L/min): 1 l/min | SpO2: 92 % Maximum Temperatures (last 24 hours) Temperature Maximum Max Temp 99.7 F (37.6 C) #1 Right Chest Tube Output: 170 mL/24 hours - positive air leak on 20 cm Suction #2 Right Chest Tube Output: 300 mL/24 hours - negative air leak on 20 cm Suction Heart: RRR Lungs: coarse breath sounds on the right Incision: right chest OR dressing in place Labs: CBC: WBC Date Value Ref Range Status 02/03/2019 8.1 4.0 - 11.0 K/uL Final 02/02/2019 7.1 4.0 - 11.0 K/uL Final Hemoglobin Date Value Ref Range Status 02/03/2019 7.6 (L) 13.5 - 17.5 g/dL Final 02/02/2019 8.2 (L) 13.5 - 17.5 g/dL Final Hematocrit Date Value Ref Range Status 02/03/2019 23.1 (L) 40.0 - 50.0 % Final 02/02/2019 24.9 (L) 40.0 - 50.0 % Final Platelet Count Date Value Ref Range Status 02/03/2019 202 140 - 400 K/uL Final 02/02/2019 204 140 - 400 K/uL Final Renal Function Panel: Sodium Date Value Ref Range Status 02/02/2019 132 (L) 135 - 145 meq/L Final 02/01/2019 136 135 - 145 meq/L Final Potassium Date Value Ref Range Status 02/02/2019 4.5 3.5 - 5.3 meq/L Final 02/01/2019 4.2 3.5 - 5.3 meq/L Final Chloride Date Value Ref Range Status 02/02/2019 100 99 - 110 meq/L Final 02/01/2019 106 99 - 110 meq/L Final CO2 Date Value Ref Range Status 02/02/2019 26 20 - 29 meq/L Final 02/01/2019 23 20 - 29 meq/L Final BUN Date Value Ref Range Status 02/02/2019 11 6 - 22 mg/dL Final 02/01/2019 11 6 - 22 mg/dL Final Creatinine Date Value Ref Range Status 02/02/2019 0.64 (L) 0.80 - 1.30 mg/dL Final 02/01/2019 0.66 (L) 0.80 - 1.30 mg/dL Final Glucose Date Value Ref Range Status 02/02/2019 153 (H) 70 - 100 mg/dL Final 02/01/2019 181 (H) 70 - 100 mg/dL Final Calcium Date Value Ref Range Status 02/02/2019 8.0 (L) 8.5 - 10.5 mg/dL Final 02/01/2019 7.7 (L) 8.5 - 10.5 mg/dL Final Phosphorus Date Value Ref Range Status 02/02/2019 3.0 2.5 - 4.5 mg/dL Final 02/01/2019 3.8 2.5 - 4.5 mg/dL Final Albumin Date Value Ref Range Status 02/02/2019 2.6 (L) 3.5 - 5.0 g/dL Final 02/01/2019 2.9 (L) 3.5 - 5.0 g/dL Final Cultures positive for many pseudomonas Path pending Chest X-Ray: stable small apical ptx Assessment: S/P thoracotomy, right upper lobe lobectomy Plan: Pulmonary toilet Home meds Out of bed to chair Ambulate Decrease suction to -10 Other cares per primary team OK to remove maxwell from our standpoint Jessica Sharp MD - 02/02/2019 5:52 PM CDT INFECTIOUS DISEASE PROGRESS Impression - Right upper lobe lung abscess s/p right upper lobe lobectomy on 02/01/19 - Recent admission for Pseudomonas aeruginosa bacteremia and pneumonia Plan - Continue meropenem 500mg IV Q6H - Follow intra-operative cultures Jessica Ferrera MD Infectious Disease Pager [phone] Interval History S/p right upper lobe lobectomy on 02/01/19, cough is improved since surgery He has been afebrile Antibiotics Antibiotics (From admission, onward) Start Stop Route Frequency Ordered 02/01/19 1215 ceFAZolin (ANCEF) 2000 mg/20 mL sterile water IV syringe ( ceFAZolin (ANCEF) 2 g IV (for patient weight 120 kg OR LESS or weight NOT available)) 02/01 1320 IV Give in OR 01/31/19 1207 01/28/19 0600 meropenem (MERREM) 500 mg in sodium chloride 0.9% 100 mL ( meropenem (MERREM) 1 g IVnow followed by 500 mg q6h) -- IV Every six hours 01/27/19224701/27/19 225 meropenem (MERREM) 1,000 mg in sodium chloride 0.9% 100 mL ( meropenem (MERREM) 1 g IV now followed by 500 mg q6h) 01/28 0019 IV Now 01/27/192247 All other medications reviewed in Epic. Physical Exam Current Vital Signs Temp: 99.6 F (37.6 C) BP: 100/53 Pulse: 99 O2 Device: NC - no humidity O2 Flow Rate (L/min): 2 l/min Resp: 18 Pain Ratin (out of 10) Weight: 65.2 kg (143 lb 11.8 oz) SpO2: 99 % Maximum Temperatures (last 24 hours) Temperature Maximum Max Temp 99.6 F (37.6 C) Physical Exam General: cooperative, no distress HEENT: no oral thrush noted Neck: supple Lungs: Decreased breath sounds bilaterally, + chest tubes, s/p right thoracotomy with right upper lobe lobectomy Heart: regular Abdomen: soft, BS+, no tenderness Msk: no swelling of joints, no edema Skin: no suspicious rashes Neuro: Alert, follows commands Microbiology BLOOD: 01/17/19 - Pseudomonas aeruginosa 01/19/19 - No growth 01/27/19 - No growth URINE: 01/17/19 - Klebsiella pneumoniae 02/01/19 Pleural fluid - Pseudomonas aeruginosa Labs and Imaging Estimated Creatinine Clearance: 106.1 mL/min (A) (based on SCr of 0.64 mg/dL (L) ). Lab Results Component Value Date WBC 7.1 02/02/2019 NUCRBC 0 02/01/2019 RBC 2.74 (L) 02/02/2019 HEMOGLOBIN 8.2 (L) 02/02/2019 HEMATOCRIT 24.9 (L) 02/02/2019 MCV 90.9 02/02/2019 MCH 29.9 02/02/2019 MCHC 32.9 02/02/2019 PLTCOUNT 204 02/02/2019 NEUTROPCT 70.8 02/01/2019 BANDPCT 21.0 01/19/2019 LYMPHSPCT 21.3 02/01/2019 MONOSPCT 6.5 02/01/2019 EOSPCT 0.9 02/01/2019 BASOPHILPCT 0.5 02/01/2019 Lab Results Component Value Date GLUCOSE 153 (H) 02/02/2019 BUN 11 02/02/2019 CREATSERUM 0.64 (L) 02/02/2019 BCRATIO 17.2 02/02/2019 NA 132 (L) 02/02/2019 POTASSIUM 4.5 02/02/2019 CL 100 02/02/2019 CO2 26 02/02/2019 CA 8.0 (L) 02/02/2019 PROTEINTOTAL 5.2 (L) 01/29/2019 ALBUMIN 2.6 (L) 02/02/2019 ALKPHOS 120 01/29/2019 AST 28 01/29/2019 ALT 40 01/29/2019 BILITOTAL 0.6 01/29/2019 Medical Decision Making Total unit / floor time 25 minutes. Over 50% of total time used in counseling and coordination of care. Kaveh Peres MD - 02/02/2019 1:35 PM CDT [facility] Hospitalist Daily Progress Note Assessment/Plan: #Pseudomonal Pneumonia #Lung abscess 2/2 Pneumonia -Cardiothoracic surgery following- Patient had Right thoracotomy and right upper lobectomy -Meropenem 500mg every 6 hours- continued -ID following -Blood cultures-showed no growth -Mucinex PRN -CBC with differential ordered -Patient on PRN ALBUTEROL q4 hrs for SOB and [id number] -Pain management post-op with Dilaudid mg IV every hour PRN for severe pain and -Toradol IV injections 15 mg if pain not responding to other medications -oxycodone 5 mg PRN Q3 hours for moderate pain. #Irritant dermatitis - likely fungal -Nystatin BID #Anemia Hemoglobin increasing Resolved. Chronic Problems: -COPD: continue home breo-ellipta, prn albuterol -Urinary retention: continue home flomax DVT prophylaxis: Heparin Disposition: TBD Code Status: Modified DNR, no intubation. Chest compressions and electrical intervention okay Chief Complaint: Patient is a 63 year old male with a PMH of COPD, prostate cancer , traumatic brain injury (November 2018) He was recently admitted to the hospital on 01/17 for pneumonia with SOB hemoptysis and hypoxia. He was found to have pseudomonas pneumonia and was treated with meropenem in hospital and discharged on levaquin. He presented yesterday with cough, hemoptysis, weakness and worsening short ness of breath. He was admitted for Pneumonia and right upper lobe abscess . Subjective: No acute events overnight - Patient states he is doing really well after surgery , he states he has not had a cough after surgery, and has not had shortness of breath. Patient is currently on room air. He complains of pain on the right side of his chest post-op. He states he has a hard time moving the side where he had surgery. Patient has PRN dilaudid IV and toradol injection for pain. Objective: Vital signs in last 24 hours: Vitals Vitals: 01/30/19 0821 01/30/19 0946 01/30/19 1542 01/30/19 1912 BP: 116/83 125/83 120/75 Pulse: 86 88 87 94 Resp: 16 14 16 20 Temp: 98.1 F (36.7 C) 98.9 F (37.2 C) 99.7 F (37.6 C) SpO2: 93% 94% 97% 97% Weight: Height: Weight change: Vitals Min/Max Last 24 Hours Vital Signs Min/Max (last 24 hours) Flowsheet Row Name Min Max Temp 97.9 F (36.6 C) 99.7 F (37.6 C) BP: Systolic 116 125 BP: Diastolic 75 83 Pulse 86 94 Resp 14 20 SpO2 93 % 97 % Intake and Output Last 24 Hours 01/29 0700 - 01/30 0659 In: 1532 Out: 1450 Physical Exam: General Appearance: alert, well appearing, and in no distress Mental Status: oriented to person, place, and time Chest:Decreased breath sonds bilaterally R>L, , Wheezing in the right upper lung field. Heart: normal rate, regular rhythm, normal S1, S2, no murmur Abdomen: soft, nontender, nondistended, bowel sounds heard. Tenderness to palpation of the right chest wall Neurological: normal speech, no gross sensory or motor deficits noted Extremities: No pedal edema, no tenderness Associated attestation - Osito Vargas MD - 02/02/2019 9:26 PM CDTMrCucaRyan was seen and discussed with ; I personally interviewed and examined the patient. Iagree with 's diagnosis and management. 63yr male with recurrent pseudomonal pneumonia c/b lung abscess, now s/p right thoracotomy and rightupper lobectomy on 02/02/19. Patient feeling better. Continue Merrem. Osito Vargas MD, MPHMichael Monique MD - 02/02/2019 9:26 AM CDTCVTS STAFF PROGRESS NOTE Pt seen at bedside. Agree with progress note and plan as written by Amarilys Amaro PA-C Patient looks remarkably good today. Off oxygen. CXR stable with small ptx. Air leak from anterior tube slightly improved overnight. Will keep tubes on suction. OK to transfer to floor from our standpoint. Will continue to follow and manage tubes, incisions, and pain control. Amarilys Rollins PA-C - 02/02/2019 7: 13 AM CDT CVTS Progress Note POD #1 Subjective: Problems over the previous 24 hours: nothing. Today, patient is complaining of nothing. Patient says he feels great, hasn't felt this good in a while. Objective: Temp: 99.2 F (37.3 C) | BP: 85/60 | Pulse: 100 | Resp: 25 | Pain Ratin ( out of 10) | Weight:65.2 kg (143 lb 11.8 oz) | O2 Device: Room Air O2 Flow Rate (L/min): 3 l/min | SpO2: 96 % Maximum Temperatures (last 24 hours) Temperature Maximum Max Temp 99.2 F (37.3 C) #1 Right Chest Tube Output: 128 mL/24 hours - positive air leak on 20 cm Suction #2 Right Chest Tube Output: 400 mL/24 hours - negative air leak on 20 cm Suction Heart: regular rhythm and tachycardic Lungs: coarse breath sounds on the right, on RA @ 96% Incision: right chest OR dressing in place Labs: CBC: WBC Date Value Ref Range Status 02/02/2019 7.1 4.0 - 11.0 K/uL Final 02/01/2019 4.7 4.0 - 11.0 K/uL Final Hemoglobin Date Value Ref Range Status 02/02/2019 8.2 (L) 13.5 - 17.5 g/dL Final 02/01/2019 8.7 (L) 13.5 - 17.5 g/dL Final Hematocrit Date Value Ref Range Status 02/02/2019 24.9 (L) 40.0 - 50.0 % Final 02/01/2019 26.6 (L) 40.0 - 50.0 % Final Platelet Count Date Value Ref Range Status 02/02/2019 204 140 - 400 K/uL Final 02/01/2019 191 140 - 400 K/uL Final Renal Function Panel: Sodium Date Value Ref Range Status 02/02/2019 132 (L) 135 - 145 meq/L Final 02/01/2019 136 135 - 145 meq/L Final Potassium Date Value Ref Range Status 02/02/2019 4.5 3.5 - 5.3 meq/L Final 02/01/2019 4.2 3.5 - 5.3 meq/L Final Chloride Date Value Ref Range Status 02/02/2019 100 99 - 110 meq/L Final 02/01/2019 106 99 - 110 meq/L Final CO2 Date Value Ref Range Status 02/02/2019 26 20 - 29 meq/L Final 02/01/2019 23 20 - 29 meq/L Final BUN Date Value Ref Range Status 02/02/2019 11 6 - 22 mg/dL Final 02/01/2019 11 6 - 22 mg/dL Final Creatinine Date Value Ref Range Status 02/02/2019 0.64 (L) 0.80 - 1.30 mg/dL Final 02/01/2019 0.66 (L) 0.80 - 1.30 mg/dL Final Glucose Date Value Ref Range Status 02/02/2019 153 (H) 70 - 100 mg/dL Final 02/01/2019 181 (H) 70 - 100 mg/dL Final Calcium Date Value Ref Range Status 02/02/2019 8.0 (L) 8.5 - 10.5 mg/dL Final 02/01/2019 7.7 (L) 8.5 - 10.5 mg/dL Final Phosphorus Date Value Ref Range Status 02/02/2019 3.0 2.5 - 4.5 mg/dL Final 02/01/2019 3.8 2.5 - 4.5 mg/dL Final Albumin Date Value Ref Range Status 02/02/2019 2.6 (L) 3.5 - 5.0 g/dL Final 02/01/2019 2.9 (L) 3.5 - 5.0 g/dL Final Path: pending Chest X-Ray: R pneumothorax, small amount of sub Q emphysema Assessment: S/P thoracotomy, right upper lobe lobectomy Plan: Pulmonary toilet Home meds Out of bed to chair Ambulate Keep chest tubes on suction-may be off to ambulate Other cares per primary team Kaveh Peres MD - 02/01/2019 6:48 AM CDT [facility]ist Daily Progress Note Assessment/Plan: #Pseudomonal Pneumonia #Lung abscess 2/ Pneumonia -Meropenem 500mg every 6 hours -ID following -Blood cultures-showed no growth -Cardiothoracic surgery following, surgery today planned right thoracotomy and right upper lobectomy- recommend ICU stay after surgery -Mucinex PRN -IS #Irritant dermatitis - likely fungal -Nystatin BID #Anemia Hemoglobin increasing Resolved. Chronic Problems: -COPD: continue home breo-ellipta, prn albuterol -Urinary retention: continue home flomax DVT prophylaxis: Heparin Disposition: TBD Code Status: Modified DNR, no intubation. Chest compressions and electrical intervention okay Chief Complaint: Patient is a 63 year old male with a PMH of COPD, prostate cancer , traumatic brain injury (November 2018) He was recently admitted to the hospital on 01/17 for pneumonia with SOB hemoptysis and hypoxia. He was found to have pseudomonas pneumonia and was treated with meropenem in hispital and discharged on levaquin. He presented yesterday with cough, hemoptysis, weakness and worsening short ness of breath. He was admitted for Pneumonia and right upper lobe abscess . Subjective: No acute events overnight - Patient says he is doing well, has noted a little bit of bloods in his sputum, states the coughing has caused the right side of his chest to hurt. He has seen surgery today and states that he will be getting surgery today. He denies fevers, headaches, vomiting, diarrhea andabdominal pain. States he still has a cough. Objective: Vital signs in last 24 hours: Vitals Vitals: 01/30/19 0821 01/30/19 0946 01/30/19 1542 01/30/19 1912 BP: 116/83 125/83 120/75 Pulse: 86 88 87 94 Resp: 16 14 16 20 Temp: 98.1 F (36.7 C) 98.9 F (37.2 C) 99.7 F (37.6 C) SpO2: 93% 94% 97% 97% Weight: Height: Weight change: Vitals Min/Max Last 24 Hours Vital Signs Min/Max (last 24 hours) Flowsheet Row Name Min Max Temp 97.9 F (36.6 C) 99.7 F (37.6 C) BP: Systolic 116 125 BP: Diastolic 75 83 Pulse 86 94 Resp 14 20 SpO2 93 % 97 % Intake and Output Last 24 Hours 01/29 0700 - 01/30 0659 In: 1532 Out: 1450 Physical Exam: General Appearance: alert, well appearing, and in no distress Mental Status: oriented to person, place, and time Chest:Decreased breath sonds bilaterally R>L, , no wheezes or rhonchi noted Heart: normal rate, regular rhythm, normal S1, S2, no murmur Abdomen: soft, nontender, nondistended, bowel sounds heard Neurological: normal speech, no gross sensory or motor deficits noted Extremities: No pedal edema, no tenderness Associated attestation - Osito Vargas MD - 02/01/2019 10:07 PM CDTMrNaty was seen and discussed with ; I personally interviewed and examined the patient. Ashkan with 's diagnosis and management. Osito Vargas MD, MPHClover Mayer MD - 01/31/2019 6:48 AM CDT [facility]ist Daily Progress Note Assessment/Plan: #Pseudomonal Pneumonia #Lung abscess 2/2 Pneumonia -Meropenem 500mg every 6 hours -ID following -Blood cultures-showed no growth -Cardiothoracic surgery following, surgery tomorrow -Mucinex PRN -IS #Irritant dermatitis - likely fungal -Nystatin BID #Anemia Hemoglobin increasing Resolved. Chronic Problems: -COPD: continue home breo-ellipta, prn albuterol -Urinary retention: continue home flomax DVT prophylaxis: Heparin Disposition: TBD Code Status: Modified DNR, no intubation. Chest compressions and electrical intervention okay Chief Complaint: Patient is a 63 year old male admitted to the hospital with pseudomonas pneumonia, refractory to outpatient Levofloxacin treatment, and subsequent right upper lobe abscess. Subjective: Patient doing well, reports his breathing is comfortable. No chest pain. No acute events reported overnight. ROS: Patient denies any chest pain, dyspnea, abdominal pain, nausea, vomiting, headache or dizziness. Objective: Vital signs in last 24 hours: Vitals Vitals: 01/30/19 0821 01/30/19 0946 01/30/19 1542 01/30/19 1912 BP: 116/83 125/83 120/75 Pulse: 86 88 87 94 Resp: 16 14 16 20 Temp: 98.1 F (36.7 C) 98.9 F (37.2 C) 99.7 F (37.6 C) SpO2: 93% 94% 97% 97% Weight: Height: Weight change: Vitals Min/Max Last 24 Hours Vital Signs Min/Max (last 24 hours) Flowsheet Row Name Min Max Temp 97.9 F (36.6 C) 99.7 F (37.6 C) BP: Systolic 116 125 BP: Diastolic 75 83 Pulse 86 94 Resp 14 20 SpO2 93 % 97 % Intake and Output Last 24 Hours 01/29 0700 - 01/30 0659 In: 1532 Out: 1450 Physical Exam: General Appearance: alert, well appearing, and in no distress Mental Status: oriented to person, place, and time Chest: Good air entry to bases bilaterally, lungs clear to auscultation, no wheezes or rhonchi noted Heart: normal rate, regular rhythm, normal S1, S2, no murmur Abdomen: soft, nontender, nondistended, bowel sounds heard Neurological: normal speech, no gross sensory or motor deficits noted Extremities: No pedal edema, no tenderness Associated attestation - Alexis Talbert MD - 02/01/2019 4:50 PM CDTI discussed the patient with the resident and personally interviewed and examined the patient. I agree with the patient's diagnosis and management. Pt is feeling ok, appetite is improving, Dr. Sutherland evaluated & plans for surgery in am.Kaveh Abbott MD - 01/30/2019 8:24 AM CDT Assessment/Plan: #Pseudomonal Pneumonia #Lung abscess 2/2 Pneumonia #Sepsis 2/2 Pneumonia - resolved -Patient will continue on meropenem 500mg every 6 hours - CT chest showed "large region of cavitation in the right upper lung with air fluid level and heterogenous material in the central cavity" - Suspected lung abscess secondary to pneumonia -ID has been consulted - recommend continuing IV meropenem -Sputum cultures ordered- cancelled due to secretions not being sales and marketing representative of lower resp secretions -Blood cultures-showed no growth -Cardiothoracic surgery consulted- full consult to follow, the anticipate complex surgical resection -Patient started on PRN mucinex #Transamanitis - Resolved -ALT:55; AST:27 Alkaline Phos 133- most recent values as of 01/28/19 #Anemia Patient's HB is stable -Will continue to trend and monitor CBC with differential ordered #Irritant dermatitis - likely fungal - Nystatin ordered, will monitor #Chronic Problems: COPD - continue home breo-ellipta, prn albuterol Urinary retention - continue home flomax DVT prophylaxis: Heparin 5000 U Disposition: TBD Code Status: DNI (Modified DNR) Chief Complaint: Patient is a 63 year old male with a PMH of COPD, prostate cancer , traumatic brain injury (November 2018) He was recently admitted to the hospital on 01/17 for pneumonia with SOB hemoptysis and hypoxia. He was found to have pseudomonas pneumonia and was treated with meropenem in hispital and discharged on levaquin. He presented yesterday with cough, hemoptysis, weakness and worsening short ness of breath. He was admitted for Pneumonia and right upper lobe abscess . Subjective: No acute events reported overnight. He states he is feeling much better today, his shortness of breath is improved, he is couhing less since last night, he has not noticed any blood in his sputum since yesterday morning. He also states that his appetite is much better and he has eaten more since last night and today than he has since this issue began. Objective: Vital signs in last 24 hours: Vitals: 01/29/19 2040 01/29/19 2331 01/30/19 0539 01/30/19 0821 BP: 123/80 116/77 118/79 116/83 Pulse: 94 88 87 86 Resp: 16 16 16 16 Temp: 98.7 F (37.1 C) 98.9 F (37.2 C) 97.9 F (36.6 C) 98.1 F ( 36.7 C) SpO2: 94% 94% 93% 93% Weight: Height: Weight change: Vitals Min/Max Last 24 Hours Vital Signs Min/Max (last 24 hours) Flowsheet Row Name Min Max Temp 97.9 F (36.6 C) 100.2 F (37.9 C) BP: Systolic 116 123 BP: Diastolic 76 83 Pulse 86 101 Resp 16 18 SpO2 93 % 95 % Intake and Output Last 24 Hours 01/29 0700 - 01/30 0659 In: 1532 Out: 1450 Physical Exam: General Appearance: alert, well appearing, and in no distress Mental Status: oriented to person, place, and time Chest: Fine crackles in RUL, No wheezing Heart: normal rate, regular rhythm, normal S1, S2, no murmur Abdomen: soft, nontender, nondistended, bowel sounds heard Neurological: normal speech, no gross sensory or motor deficits noted Extremities: No pedal edema, no tenderness Associated attestation - Alexis Talbert MD - 02/01/2019 4:49 PM CDTI discussed the patient with the resident and personally interviewed and examined the patient. I agree with the patient's diagnosis and management.Kaveh Abbott MD - 01/29/2019 9:49 PM CDT Assessment/Plan: #Pseudomonal Pneumonia #Lung abscess 2/2 Pneumonia #Sepsis 2/2 Pneumonia - resolved -Patient will continue on meropenem 500mg every 6 hours - CT chest showed "large region of cavitation in the right upper lung with air fluid level and heterogenous material in the central cavity" - Suspected lung abscess secondary to pneumonia -ID has been consulted - recommend continuing IV meropenem -Sputum cultures ordered -Blood cultures-showed no growth -Cardiothoracic surgery consulted- full consult to follow, the anticipate complex surgical resection #Transamanitis - Resolved -ALT:55; AST:27 Alkaline Phos 133- most recent values as of 01/28/19 #Anemia Patient's HB is stable -Will continue to trend and monitor CBC with differential ordered #Irritant dermatitis - likely fungal - Nystatin ordered, will monitor #Chronic Problems: COPD - continue home breo-ellipta, prn albuterol Urinary retention - continue home flomax DVT prophylaxis: Heparin 5000 U Disposition: TBD Code Status: DNI (Modified DNR) Chief Complaint: Patient is a 63 year old male with a PMH of COPD, prostate cancer , traumatic brain injury (November 2018) He was recently admitted to the hospital on 01/17 for pneumonia with SOB hemoptysis and hypoxia. He was found to have pseudomonas pneumonia and was treated with meropenem in hispital and discharged on levaquin. He presented yesterday with cough, hemoptysis, weakness and worsening short ness of breath. He was admitted for Pneumonia and right upper lobe abscess . Subjective: No acute events reported overnight. Today He complains of some shortness of breath. He states that he does have a productive cough and noticed blood in it again, the cough was causing him some pain today. He states that he felt like he was getting better and then the cough restarted. He denies fever, chills, nausea, vomiting, and diarrhea. Admits to a decreased appetite since his symptoms of his cough began Objective: Vital signs in last 24 hours: Vitals: 01/29/19 0817 01/29/19 1535 01/29/19 1645 01/29/19 2040 BP: 118/76 123/80 Pulse: 101 94 Resp: 185 18 16 Temp: 100.2 F (37.9 C) 98.1 F (36.7 C) 98.7 F (37.1 C) SpO2: 95% 94% Weight: Height: Weight change: Vitals Min/Max Last 24 Hours Vital Signs Min/Max (last 24 hours) Flowsheet Row Name Min Max Temp 98.1 F (36.7 C) 100.2 F (37.9 C) BP: Systolic 106 128 BP: Diastolic 64 89 Pulse 87 101 Resp 16 185 SpO2 94 % 95 % MAP (mm Hg) 101 mm Hg 101 mm Hg Intake and Output Last 24 Hours 01/28 0700 - 01/29 0659 In: 2106 Out: 1645 Physical Exam: General Appearance: alert, well appearing, and in no distress Mental Status: oriented to person, place, and time Chest: Crackles and wheezes in the upper lung diaz Heart: normal rate, regular rhythm, normal S1, S2, no murmur Abdomen: soft, nontender, nondistended, bowel sounds heard Neurological: normal speech, no gross sensory or motor deficits noted Extremities: No pedal edema, no tenderness Skin: Bilateral rash in patients groin area Associated attestation - Alexis Talbert MD - 02/01/2019 4:48 PM CDTI discussed the patient with the resident and personally interviewed and examined the patient. I agree with the patient's diagnosis and management. 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 CT surgery is consulted as well for evaluation to see if he benefitfrom resection of abscess. Total time spent on taking care of pt is more than 35 minutes and more than 50% of time spent coordination of care.Noris Lugo MD - 01/29/2019 7:[address] scans reviewed Full consult to follow. Anticipate complex surgical resection will be required Jessica Sharp MD - 01/29/2019 5:14 PM CDT INFECTIOUS DISEASE PROGRESS Impression - Right upper lobe lung abscess - Recent admission for Pseudomonas aeruginosa bacteremia and pneumonia Plan - Continue meropenem 500mg IV Q6H - Anticipate discharge on IV antibiotic therapy with PICC line placement - Discussed with primary team Jessica Ferrera MD Infectious Disease Pager [phone] Interval History Worsening cough with hemoptysis He feels short of breath when he coughs Low grade fever this afternoon Antibiotics Antibiotics (From admission, onward) Start Stop Route Frequency Ordered 01/28/19 0600 meropenem (MERREM) 500 mg in sodium chloride 0.9% 100 mL ( meropenem (MERREM) 1 g IVnow followed by 500 mg q6h) -- IV Every six hours 01/27/19 2248 01/27/19 2250 meropenem (MERREM) 1,000 mg in sodium chloride 0.9% 100 mL ( meropenem (MERREM) 1 g IV now followed by 500 mg q6h) 01/28 0019 IV Now 01/27/19 2248 All other medications reviewed in Epic. Physical Exam Current Vital Signs Temp: 98.1 F (36.7 C) BP: 118/76 Pulse: 101 O2 Device: Room Air O2 Flow Rate (L/min): 2 l/min Resp: 18 Pain Ratin (out of 10) Weight: 63.5 kg (140 lb) SpO2: 95 % Maximum Temperatures (last 24 hours) Temperature Maximum Max Temp 100.2 F (37.9 C) Physical Exam General: cooperative, no distress HEENT: no oral thrush noted Neck: supple Lungs: Decreased breath sounds bilaterally, right basal crackles Heart: regular Abdomen: soft, BS+, no tenderness Msk: no swelling of joints, no edema Skin: no suspicious rashes Neuro: Alert, follows commands Microbiology BLOOD: 01/17/19 - Pseudomonas aeruginosa 01/19/19 - No growth date 01/27/19 - No growth till URINE: 01/17/19 - Klebsiella pneumoniae Labs and Imaging Estimated Creatinine Clearance: 118.1 mL/min (A) (based on SCr of 0.56 mg/dL (L) ). Lab Results Component Value Date WBC 5.3 01/29/2019 NUCRBC 0 01/29/2019 RBC 2.99 (L) 01/29/2019 HEMOGLOBIN 9.1 (L) 01/29/2019 HEMATOCRIT 27.6 (L) 01/29/2019 MCV 92.3 01/29/2019 MCH 30.4 01/29/2019 MCHC 33.0 01/29/2019 PLTCOUNT 204 01/29/2019 NEUTROPCT 75.1 01/29/2019 BANDPCT 21.0 01/19/2019 LYMPHSPCT 16.9 01/29/2019 MONOSPCT 7.0 01/29/2019 EOSPCT 0.8 01/29/2019 BASOPHILPCT 0.2 01/29/2019 Lab Results Component Value Date GLUCOSE 119 (H) 01/29/2019 BUN 6 01/29/2019 CREATSERUM 0.56 (L) 01/29/2019 BCRATIO 10.7 01/29/2019 NA 136 01/29/2019 POTASSIUM 3.8 01/29/2019 CL 99 01/29/2019 CO2 32 (H) 01/29/2019 CA 8.2 (L) 01/29/2019 PROTEINTOTAL 5.2 (L) 01/29/2019 ALBUMIN 2.4 (L) 01/29/2019 ALKPHOS 120 01/29/2019 AST 28 01/29/2019 ALT 40 01/29/2019 BILITOTAL 0.6 01/29/2019 Medical Decision Making Total unit / floor time 25 minutes. Over 50% of total time used in counseling and coordination of care. Kaveh Peres MD - 01/28/2019 1:26 PM CDT Assessment/Plan: #Pseudomonal Pneumonia #Lung abscess 2/2 Pneumonia #Sepsis 2/2 Pneumonia - resolved -Patient will continue on meropenem 500mg every 6 hours - CT chest showed "large region of cavitation in the right upper lung with air fluid level and heterogenous material in the central cavity" - Suspected lung abscess secondary to pneumonia -ID has been consulted - will wait for evaluation and recommendations before consulting Pulmonology -Sputum cultures ordered -Blood cultures pending -Patient will be NPO- pending ID recommendations for abscess treatment #Transamanitis - Resolved -ALT:55; AST:27 Alkaline Phos 133- most recent values as of 01/28/19 #Anemia Patient's HB is stable -Will continue to trend and monitor CBC with differential ordered #Irritant dermatitis - likely fungal - Nystatin ordered, will monitor #Chronic Problems: COPD - continue home breo-ellipta, prn albuterol Urinary retention - continue home flomax DVT prophylaxis: Heparin 5000 U Disposition: TBD Code Status: DNI (Modified DNR) Chief Complaint: Patient is a 63 year old male with a PMH of COPD, prostate cancer , traumatic brain injury (November 2018) He was recently admitted to the hospital on 01/17 for pneumonia with SOB hemoptysis and hypoxia. He was found to have pseudomonas pneumonia and was treated with meropenem in hispital and discharged on levaquin. He presented yesterday with cough, hemoptysis, weakness and worsening short ness of breath. He was admitted for Pneumonia and right upper lobe abscess . Subjective: No acute events reported overnight. Today He states he is doing well. Still has some shortness of breath but is better, he still has some weakness in his right leg but says it is doing better , he also complains of a rash in his groin area. He states that he does have a productive cough, but has not had any blood in his sputum as of thismorning. Patient denies any chest pain, abdominal pain, nausea, vomiting, headache or dizziness. Objective: Vital signs in last 24 hours: Vitals: 01/28/19 0155 01/28/19 0500 01/28/19 0723 01/28/19 0812 BP: 123/75 127/84 131/79 Pulse: 88 86 77 80 Resp: 25 21 20 18 Temp: 98.2 F (36.8 C) 98.6 F (37 C) 98.6 F (37 C) SpO2: 96% 95% 97% 95% Weight: Height: Weight change: Vitals Min/Max Last 24 Hours Vital Signs Min/Max (last 24 hours) Flowsheet Row Name Min Max Temp 98.2 F (36.8 C) 99.3 F (37.4 C) BP: Systolic 96 131 BP: Diastolic 65 84 Pulse 77 109 Resp 11 28 SpO2 90 % 97 % O2 Flow Rate (L/min) 2 l/min 2 l/min MAP (mm Hg) 77 mm Hg 97 mm Hg Intake and Output Last 24 Hours 01/27 0700 - 01/28 0659 In: 1000 Out: 650 Physical Exam: General Appearance: alert, well appearing, and in no distress Mental Status: oriented to person, place, and time Chest: Crackles in the RUL and wheezing in the upper lung diaz Heart: normal rate, regular rhythm, normal S1, S2, no murmur Abdomen: soft, nontender, nondistended, bowel sounds heard Neurological: normal speech, no gross sensory or motor deficits noted Extremities: No pedal edema, no tenderness Skin: Bilateral rash in patients groin area Associated attestation - Alexis Talbert MD - 02/01/2019 4:46 PM CDTI discussed the patient with the resident and personally interviewed and examined the patient. I agree with the patient's diagnosis and management.documented in this encounter Plan of Treatment Date Type Specialty Care Team Description 02/17/2019 Nurse Only Infectious Diseases 03/01/2019 Appointment Other John Aponte MD [address] [place] [address] [phone] 03/01/2019 Office Visit Physical Medicine and John Aponte MD Rehab [address] [place] [address] [phone] 03/01/2019 Appointment Physical Medicine and John Aponte MD [address] [place] [address] [phone] Rehab Ellie Wagner, PT [address] [place] [address] [phone] 03/01/2019 Office Visit Urology Lia Mendez, SH[facility]-C [address] [place] [address] [phone] 03/01/2019 Appointment Physical Medicine and John Aponte MD [address] [place] [address] [phone] Rehab Naida Lee, OTR/L [address] [place] [address] [phone] 03/08/2019 Office Visit Infectious Diseases Jessica Ferrera MD [address] [place] [address] [phone] 03/22/2019 Office Visit Neurology Lenora Jose, PHD [address] [place] [address] 03/22/2019 Clinical Support Visit Neurology Name Priority Associated Diagnoses Order Schedule CLINIC REFERRAL BEHAVIORAL Routine Current moderate episode of Ordered: HE[facility] ONE CHART major depressive disorder without prior episode (HCC) [place] (generalized anxiety disorder) documented as of this encounter Implants Implanted Type Area Cell Tender Device Shelf Model / Identifier Expiration Serial / Lot Date Allo [id number] N [id number] Ea1 - [id number] N/A: Glisten 06/26/2023 [id number] / Implanted: Qty: 1 on 11/27/2018 by Luis Jimenez MD THORACIC [id number] / NA Allo Dbm Gel Xemplifi 10cc N [id number] Ea1 - Sna N/A: [employer] [id number] / Implanted: Qty: 1 on 11/28/2018 by Luis Jimenez MD THORACIC NA / [id number] Screw Shaft Creo 5.0x35mm N 1067.1435 Ea1 - Sna N/A: [employer] 1067.1435 / Implanted: Qty: 9 on 11/28/2018 by Luis Jimenez MD THORACIC NA / NA Screw Creo Tulip Thrdcocr5.5mm N [id number] Ea1 - Sna N/A: [employer] [id number] / Implanted: Qty: 9 on 11/28/2018 by Luis Jimenez MD THORACIC NA / NA Cap Lk Creo Thrd N 1119.0010 Ea1 - Sna N/A: [employer] 1119.0010 / Implanted: Qty: 9 on 11/28/2018 by Luis Jimenez MD THORACIC NA / NA Simeon Creo Pre-Bent 125mm N 1119.5125 Ea1 - Sna N/A: [employer] 1119.5125 / Implanted: Qty: 2 on 11/28/2018 by Luis Jimenez MD THORACIC NA / NA documented as of this encounter Procedures Procedure Name Priority Date/Time Associated Comments Diagnosis LAB ONLY-COMPLETE Routine 02/10/2019 7:52 Results for this BLOOD COUNT WITH AM CDT procedure are in DIFFERENTIAL the results section. COMPLETE BLOOD COUNT Routine 02/10/2019 7:52 Results for this WITH DIFFERENTIAL AM CDT procedure are in the results section. TRANSFUSE RED BLOOD Routine 02/09/2019 5:08 CELLS IN UNITS PM CDT PREPARE AND HOLD RED Routine 02/09/2019 11:05 Results for this BLOOD CELLS IN UNITS AM CDT procedure are in - BLOOD BANK the results section. LAB ONLY-COMPLETE Routine 02/09/2019 6:50 Results for this BLOOD COUNT WITH AM CDT procedure are in DIFFERENTIAL the results section. TYPE AND SCREEN Routine 02/09/2019 6:50 Results for this AM CDT procedure are in the results section. COMPLETE BLOOD COUNT Routine 02/09/2019 6:50 Results for this WITH DIFFERENTIAL AM CDT procedure are in the results section. XRAY CHEST PORTABLE Routine 02/09/2019 4:20 Results for this AM CDT procedure are in the results section. EKG Routine 02/08/2019 5:22 Results for this PM CDT procedure are in the results section. XRAY CHEST PORTABLE Routine 02/08/2019 5:03 Results for this AM CDT procedure are in the results section. XRAY CHEST PORTABLE Routine 02/07/2019 4:50 Results for this AM CDT procedure are in the results section. LAB ONLY-COMPLETE Routine 02/06/2019 8:19 Results for this BLOOD COUNT WITH AM CDT procedure are in DIFFERENTIAL the results section. COMPLETE BLOOD COUNT Routine 02/06/2019 8:19 Results for this WITH DIFFERENTIAL AM CDT procedure are in the results section. XRAY CHEST PORTABLE Routine 02/06/2019 5:20 Results for this AM CDT procedure are in the results section. XRAY CHEST PORTABLE Routine 02/05/2019 5:25 Results for this AM CDT procedure are in the results section. COMPLETE BLOOD COUNT Routine 02/05/2019 5:01 Results for this WITHOUT DIFFERENTIAL AM CDT procedure are in the results section. BASIC METABOLIC PANEL Routine 02/05/2019 5:01 Results for this AM CDT procedure are in the results section. HEMOGLOBIN Timed Routine 02/04/2019 2:12 Results for this PM CDT procedure are in the results section. LAB ONLY-COMPLETE Routine 02/04/2019 6:18 Results for this BLOOD COUNT WITH AM CDT procedure are in DIFFERENTIAL the results section. HEMOGLOBIN Timed Routine 02/04/2019 6:18 Results for this AM CDT procedure are in the results section. BASIC METABOLIC PANEL Routine 02/04/2019 6:18 Results for this AM CDT procedure are in the results section. COMPLETE BLOOD COUNT Routine 02/04/2019 6:18 Results for this WITH DIFFERENTIAL AM CDT procedure are in the results section. XRAY CHEST PORTABLE Routine 02/04/2019 5:15 Results for this AM CDT procedure are in the results section. HEMOGLOBIN Timed Routine 02/03/2019 10:19 Results for this PM CDT procedure are in the results section. HEMOGLOBIN Timed Routine 02/03/2019 3:46 Results for this PM CDT procedure are in the results section. LAB ONLY-COMPLETE Routine 02/03/2019 5:46 Results for this BLOOD COUNT WITH AM CDT procedure are in DIFFERENTIAL the results section. COMPLETE BLOOD COUNT Routine 02/03/2019 5:46 Results for this WITH DIFFERENTIAL AM CDT procedure are in the results section. XRAY CHEST PORTABLE Routine 02/03/2019 5:23 Results for this AM CDT procedure are in the results section. XRAY CHEST PORTABLE Routine 02/02/2019 5:58 Results for this AM CDT procedure are in the results section. BLOOD GASES ARTERIAL Routine 02/02/2019 4:26 Results for this AM CDT procedure are in the results section. COMPLETE BLOOD COUNT Timed Routine 02/02/2019 4:22 Results for this WITHOUT DIFFERENTIAL AM CDT procedure are in the results section. RENAL FUNCTION PANEL Timed Routine 02/02/2019 4:22 Results for this AM CDT procedure are in the results section. BLOOD GASES ARTERIAL Routine 02/01/2019 6:01 Results for this PM CDT procedure are in the results section. COMPLETE BLOOD COUNT ELOISA 02/01/2019 5:41 Results for this WITHOUT DIFFERENTIAL PM CDT procedure are in the results section. RENAL FUNCTION PANEL ELOISA 02/01/2019 5:41 Results for this PM CDT procedure are in the results section. XRAY CHEST PORTABLE STAT 02/01/2019 5:35 Results for this PM CDT procedure are in the results section. TISSUE EXAM Routine 02/01/2019 4:25 Mass of right Results for this PM CDT lung procedure are in the results section. OR PANEL 1 POCT Routine 02/01/2019 2:24 Results for this PM CDT procedure are in the results section. CULTURE BACTERIAL, Routine 02/01/2019 1:58 Mass of right Results for this OTHER WITH GRAM STAIN PM CDT lung procedure are in the results section. CULTURE BACTERIAL, Routine 02/01/2019 1:58 Mass of right Results for this ANAEROBE PM CDT lung procedure are in the results section. LAB ONLY-CARBAPENEM Routine 02/01/2019 1:58 Mass of right Results for this RESISTANCE GENE PM CDT lung procedure are in DETECTION, NAD the results section. THORACOTOMY ADULT 02/01/2019 11:51 Mass of right AM CDT lung LAB ONLY-COMPLETE ELOISA 02/01/2019 6:34 Results for this BLOOD COUNT WITH AM CDT procedure are in DIFFERENTIAL the results section. COMPLETE BLOOD COUNT ELOISA 02/01/2019 6:34 Results for this WITH DIFFERENTIAL AM CDT procedure are in the results section. PTT Routine 02/01/2019 4:53 Results for this AM CDT procedure are in the results section. PROTIME/INR Routine 02/01/2019 4:53 Results for this AM CDT procedure are in the results section. BASIC METABOLIC PANEL Routine 02/01/2019 4:53 Results for this AM CDT procedure are in the results section. LAB ONLY-COMPLETE Routine 01/30/2019 6:02 Results for this BLOOD COUNT WITH AM CDT procedure are in DIFFERENTIAL the results section. TYPE AND SCREEN Routine 01/30/2019 6:02 Results for this AM CDT procedure are in the results section. COMPLETE BLOOD COUNT Routine 01/30/2019 6:02 Results for this WITH DIFFERENTIAL AM CDT procedure are in the results section. XRAY VIDEO SWALLOW Routine 01/29/2019 10:41 Results for this WITH FLUORO AM CDT procedure are in the results section. GRAM STAIN Routine 01/29/2019 6:53 Results for this AM CDT procedure are in the results section. LAB ONLY-COMPLETE Routine 01/29/2019 6:47 Results for this BLOOD COUNT WITH AM CDT procedure are in DIFFERENTIAL the results section. COMPREHENSIVE Routine 01/29/2019 6:47 Results for this METABOLIC PANEL AM CDT procedure are in the results section. COMPLETE BLOOD COUNT Routine 01/29/2019 6:47 Results for this WITH DIFFERENTIAL AM CDT procedure are in the results section. COMPLETE BLOOD COUNT Routine 01/28/2019 7:16 Results for this WITHOUT DIFFERENTIAL AM CDT procedure are in the results section. COMPREHENSIVE Routine 01/28/2019 7:16 Results for this METABOLIC PANEL AM CDT procedure are in the results section. CT CHEST WITHOUT Routine 01/28/2019 6:36 Results for this CONTRAST AM CDT procedure are in the results section. URINE DIP, REFLEX TO STAT 01/27/2019 10:01 Results for this MICROSCOPIC, REFLEX PM CDT procedure are in TO CULTURE the results section. XRAY CHEST PA AND ELOISA 01/27/2019 8:51 Results for this LATERAL PM CDT procedure are in the results section. CULTURE, BLOOD STAT 01/27/2019 8:36 Results for this PM CDT procedure are in the results section. PROCALCITONIN STAT 01/27/2019 8:30 Results for this PM CDT procedure are in the results section. CULTURE, BLOOD STAT 01/27/2019 8:30 Results for this PM CDT procedure are in the results section. ESR STAT 01/27/2019 8:30 Results for this PM CDT procedure are in the results section. C-REACTIVE PROTEIN STAT 01/27/2019 8:30 Results for this (INFLAMMATION) PM CDT procedure are in the results section. LACTIC ACID STAT 01/27/2019 8:30 Results for this PM CDT procedure are in the results section. LAB ONLY-COMPLETE STAT 01/27/2019 8:21 Results for this BLOOD COUNT WITH PM CDT procedure are in DIFFERENTIAL the results section. COMPLETE BLOOD COUNT STAT 01/27/2019 8:21 Results for this WITH DIFFERENTIAL PM CDT procedure are in the results section. COMPREHENSIVE STAT 01/27/2019 8:20 Results for this METABOLIC PANEL PM CDT procedure are in the results section. EKG STAT 01/27/2019 7:07 Results for this PM CDT procedure are in the results section. documented in this encounter Results LAB ONLY-COMPLETE BLOOD COUNT WITH DIFFERENTIAL (02/10/2019 7:52 AM CDT)Only the most recent of9 resultswithin the time period is included. WBC 6.3 4.0 - 11.0 K/uL [address] RBC 3.08 (L) 4.40 - 5.[address] M/uL Hemoglobin 9.2 (L) 13.5 - 17.[address] g/dL Hematocrit 28.6 (L) 40.0 - 50.0 % [address] MCV 92.9 80.0 - 98.[address] MCH 29.9 25.5 - 34.[address] MCHC 32.2 31.5 - 36.[address] g/dL RDW-CV 15.0 11.5 - 15.5 % [address] RDW-SD 50.7 (H) 35.5 - 50.[address] Platelet Count 206 140 - 400 K/uL [address] MPV 9.5 8.5 - 12.[address] Seg Neut Absolute 4.5 1.8 - 8.0 K/uL [address] Lymphocytes Absolute 1.1 0.8 - 4.1 K/uL [address] Monocytes Absolute 0.4 0.0 - 1.0 K/uL [address] Eosinophils Absolute 0.2 0.0 - 0.7 K/uL [address] Basophil Absolute 0.0 0.0 - 0.2 K/uL [address] Immature Granulocyte 0.07 (H) 0.00 - 0.[address] Absolute K/uL Neutrophils Abs. 4,500 /uL [address] (Segs and Bands) Neutrophils Percent 71.9 % [address] Lymphocytes Percent 17.0 % [address] Monocytes Percent 7.0 % [address] Immature Granulocyte 1.1 % [address] Percent Eosinophils Percent 3.6 % [address] Basophil Percent 0.5 % [address] Nucleated RBC 0 /[address] Specimen Blood Performing Organization Address City/State/Zipcode Phone Number [address] [place] [address] PREPARE AND HOLD RED BLOOD CELLS IN UNITS - BLOOD BANK, 1 Units (02/09/2019 11: 05 AM CDT) [facility] Product Code [id number] LAB [facility] Unit Number [id number] LAB Unit ABO Type A LAB Unit Rh Type POS LAB XM Interp Compatible LAB BPA Dispense Status IS LAB [facility] Blood [id number] LAB Expiration Date [facility] Coding System 6200 LAB Product Code RBC, Leukoreduced LAB [id number]>AS3 Unit ID [id number] LAB Product Status Issued LAB Specimen Blood Performing Organization Address City/[facility]/Zipcode Phone Number LAB TYPE AND SCREEN (02/09/2019 6:50 AM CDT)Only the most recent of2 resultswithin the time period is included. ABO Type A [address] BLOOD BANK Rh Type Positive [address] BLOOD BANK Antibody Screen Negative [address] Comment: BLOOD BANK Allogenic Red Cells Available 6CD 02/09/19 Expiration Date 02/12/2019 23:[address] BLOOD BANK Specimen Blood Performing Organization Address [facility] Phone Number [address] BLOOD BANK [address] [place] [address] XRAY CHEST PORTABLE - (02/09/2019 4:20 AM CDT)Only the most recent of9 resultswithin the time period is included. Specimen Narrative Performed At [facility] Patient Name: KENYA MEMBRENO Date of :1955 Procedure: XRAY CHEST PORTABLE Date of Service: 02/09/2019 EXAM: X-RAY CHEST PORTABLE INDICATION: Post - Op COMPARISON(S): 02/08/2019. FINDINGS: A single frontal view of the chest was obtained with portable technique. Postsurgical changes of the right chest, which is status post lobectomy is noted. Some fluid noted in the right chest. The left lung is clear. Upper mediastinal width is normal. Status post posterior fixation in the thoracic spine is noted. Multiple right-sided rib fractures. No lines or tubes. IMPRESSION: No significant interval change to the 02/08/2019 study. Some fluid in the right chest. Edited by: CHARLES 02/09/2019 5:43 AM CDT Finalized by: Parbhakar Kenyon MD on 02/09/2019 6:07 AM CDT Patient/Procedure Information: [facility] MRN/SHANNON: [id number] Order Number: [id number] Accession Number: [id number] Ordering Provider: MICHAEL MONIQUE Authorizing Provider: MICHAEL MONIQUE Procedure Note Interface, Radiantres - 02/09/2019 6:09 AM CDT Patient Name: KENYA MEMBRENO Date of : 1955 Procedure: XRAY CHEST PORTABLE Date of Service: 02/09/2019 EXAM: X-RAY CHEST PORTABLE INDICATION: Post - Op COMPARISON(S): 02/08/2019. FINDINGS: A single frontal view of the chest was obtained with portable technique. Postsurgical changes of the right chest, which is status post lobectomy is noted. Some fluid noted in the right chest. The left lung is clear. Upper mediastinal width is normal. Status post posterior fixation in the thoracic spine is noted. Multiple right-sided rib fractures. No lines or tubes. IMPRESSION: No significant interval change to the 02/08/2019 study. Some fluid in the right chest. Edited by: CHARLES 02/09/2019 5:43 AM CDT Finalized by: Prabhakar Kenyon MD on 02/09/2019 6:07 AM CDT Patient/Procedure Information: [facility] MRN/SHANNON: [id number] Order Number: [id number] Accession Number: [id number] Ordering Provider: MICHAEL MONIQUE Authorizing Provider: MICHAEL MONIQUE Performing Organization Address City/[facility]/Zipcode Phone Number [id number] EKG (02/08/2019 5:22 PM CDT)Only the most recent of2 resultswithin the time period is included. Pathologist [facility] [place] EKG [facility] Normal sinus rhythm Incomplete right bundle branch block Borderline ECG When compared with ECG of 27-JAN-2019 19:07, QT has shortened Ventricular Rate: 99 BPM Atrial Rate: 99 BPM P-R Interval: 152 ms QRS Duration: 98 ms Q-T Interval: 336 ms QTc Calculation(Bazett): 431 ms Calculated P [place]: 62 degrees Calculated R [place]: 71 degrees Calculated T [place]: 55 degrees Specimen Narrative Performed At Performing Organization Address City/[facility] Phone Number [facility] BASIC METABOLIC PANEL (02/05/2019 5:01 AM CDT)Only the most recent of3 resultswithin the time period is included. Pathologist [facility] [place] Glucose 122 (H) 70 - 100 mg/dL [facility] [address] [place] [address] BUN 9 6 - 22 mg/dL [address] Creatinine 0.52 (L) 0.80 - 1.[address] mg/dL BUN/Creatinine Ratio 17.3 10.0 - 25.[address] Sodium 136 135 - 145 meq/L [address] Potassium 4.1 3.5 - 5.3 meq/L [address] Chloride 92 (L) 99 - 110 meq/L [place] [address] [facility]INIC CO2 35 (H) 20 - 29 meq/L [address] Anion Gap with K 13 6 - 20 meq/L [address] Calcium 8.3 (L) 8.5 - 10.[address] mg/dL Age [address] eGFR Non- >90 >=[address] Lao mL/min/1.73m2 eGFR >90 >=[address] mL/min/1.73m2 Specimen Blood Performing Organization Address City/State/Zipcode Phone Number [address] [place] [address] COMPLETE BLOOD COUNT WITHOUT DIFFERENTIAL (02/05/2019 5:01 AM CDT)Only the most recent of4 resultswithin the time period is included. WBC 6.0 4.0 - 11.0 K/uL [address] RBC 2.48 (L) 4.40 - 5.80 M/uL [address] Hemoglobin 7.4 (L) 13.5 - 17.5 g/dL [address] Hematocrit 23.0 (L) 40.0 - 50.0 % [address] MCV 92.7 80.0 - 98.[address] MCH 29.8 25.5 - 34.[address] MCHC 32.2 31.5 - 36.5 g/dL [address] RDW-CV 13.8 11.5 - 15.5 % [address] RDW-SD 46.5 35.5 - 50.[address] Platelet Count 215 140 - 400 K/uL [address] MPV 9.7 8.5 - 12.[address] Specimen Blood Performing Organization Address [facility] Phone Number [place] [address] [place] [address] HEMOGLOBIN (02/04/2019 2:12 PM CDT)Only the most recent of4 resultswithin the time period is included. Hemoglobin 8.0 (L) 13.5 - 17.5 g/dL [address] Specimen Blood Performing Organization Address [facility] Phone Number [address] [place] [address] BLOOD GASES ARTERIAL (02/02/2019 4:26 AM CDT)Only the most recent of2 resultswithin the time period is included. pH Arterial 7.48 (H) 7.35 - 7.45 [facility] pCO2 Arterial 36 35 - 45 mmHg [facility] pO2 Arterial 61 (L) 80 - 100 [facility] Base Excess Arterial 3 (H) -2 - 2 meq/L [facility] HCO3 (Bicarb) 27 20 - 29 [facility] mmol/L [facility] O2 Sat % Arterial 91 (L) 95 - 98 % [facility] Carbon Monoxide 1.1 0.0 - 3.0 % [facility] Methemoglobin 0.5 0.0 - 3.0 % [facility] p50 24.83 (L) 25.00 - [facility] 29.00 mmHg [facility] Allens Test Not Done-Drawn [facility] From Line [facility] Collection Site Arterial Line [facility] Arterial [facility] O2 Source Room Air [facility] Specimen Blood Performing Organization Address [facility] Phone Number [facility] - [address] [place] [address] RESPIRATORY THERAPY RENAL FUNCTION PANEL (02/02/2019 4:22 AM CDT)Only the most recent of2 resultswithin the time period is included. Glucose 153 (H) 70 - 100 mg/dL [address] BUN 11 6 - 22 mg/dL [address] Creatinine 0.64 (L) 0.80 - 1.[address] mg/dL BUN/Creatinine Ratio 17.2 10.0 - 25.[address] Sodium 132 (L) 135 - 145 meq/L [address] Potassium 4.5 3.5 - 5.3 meq/L [address] Chloride 100 99 - 110 meq/L [address] CO2 26 20 - 29 meq/L [address] Anion Gap with K 11 6 - 20 meq/L [address] Calcium 8.0 (L) 8.5 - 10.[address] mg/dL Phosphorus 3.0 2.5 - 4.5 mg/dL [address] Albumin 2.6 (L) 3.5 - 5.0 g/dL [address] Corrected Calcium 9.1 8.5 - 10.[address] mg/dL Age [address] eGFR Non- >90 >=[address] Lao mL/min/1.73m2 eGFR >90 >=[address] mL/min/1.73m2 Specimen Blood Performing Organization Address City/State/Zipcode Phone Number [address] [place] [address] TISSUE EXAM (02/01/2019 4:25 PM CDT) FINAL DIAGNOSIS A. Lung, right upper lobe, lobectomy: [facility] Electronically - 8.5 cm cavitating abscess with with marked cellular acute bronchopneumonia. CLINIC signed by Doreen, - Ruptured large arterial wall with hemorrhage. Kimberli Stokes MD on - Properly controlled GMS and PAS-D are negative for fungal organisms. at 3:00 - Five reactive peribronchial lymph nodes; marked anthracosis. PM JLL:ch GROSS DESCRIPTION Received in formalin labeled right upper lobe" is 504 gram, 20.3 x 17.6 x 4.3 cm right upper lobectomy specimen. The pleura is pink-purple , diffusely anthracotic, wrinkled and remarkable for a 8.5 x 4. [facility] 6 cm large cavitated defect on the anterior/superior aspect of the specimen. There are multiple staple lines at the hilum, and additional staple lines running throughout the entire length of the specim CLINIC en along the posterior aspect. The hilum additionally includes multiple sutured vessels, and sutured portion of the bronchus, 1.9 cm in diameter x 0.5 cm in length. No lesion is identified at the bronchial or vascular end margins. The cut surfaces are remarkable for a 9.5 x 8.6 x 4.9 cm indurated area which includes and surrounds the aforementioned pleural cavitated defect, at the anterior mid to superior region of the lobe. This area abuts the blue inked pleura, and is located greater than 2 cm from the black inked bronchial reaction margin, and bronchial/vascular end margins. The remaining parenchyma is pink-red, soft, spongy and diffusely anthracotic. No additional lesions or areas of concern are identified. A partly disrupted 2.4 cm rasheed, anthracotic lymph node is identified within the peribronchial region. Four rasheed, anthracotic possible intralobar lymph nodes are identified, 0.4 to 1.4 cm. Ink code: Black Hilum resection margin Blue Pleura surrounding cavitated defect [employer] sections submitted as follows (14 blocks): A1 Bronchial end margin, en face A2 Vascular end margin, en face A3-A4 Edge of cavitated defect A5-A7 Central portions of the cavitated defect with subadjacent indurated tissue A8 Random unremarkable sections of lung parenchyma A9-A11 One peribronchial lymph node, sectioned A12 One lymph node, trisected A13 One lymph node, bisected A14 One lymph node, bisected, and one intact lymph node (inked blue) SM:ch MICROSCOPIC Microscopic examination performed. [facility] A properly-controlled Gram stain shows numerous Gram negative coccobacilli within macrophages. CASE REPORT Surgical Pathology Report Case: [id number] [facility] Authorizing Provider:Michael Monique MDCollected: 02/01/2019 1625 CLINIC Ordering Location: [facility] Received: 02/01/[address] [place] [address] Pathologist: Kimberli Logan MD Specimen:Lung, RIGHT UPPER LOBE EMBEDDED IMAGES [facility] Specimen Tissue Performing Organization Address City/State/Zipcode Phone Number [address] [place] [address] OR PANEL 1 POCT (02/01/2019 2:24 PM CDT) pH Arterial POCT 7.42 7.35 - 7.45 [facility] POINT OF CARE TESTING pCO2 Arterial POCT 43 35 - 45 mmHg [facility] POINT OF CARE TESTING pO2 Arterial POCT 59 (L) 80 - 100 mmHg [facility] POINT OF CARE TESTING HCO3 (Bicarb) 28 20 - 29 mmol/L [facility] Arterial POCT [facility] POINT OF CARE TESTING Base Excess Arterial 3 (H) -2 - 2 meq/L [facility] POINT OF CARE TESTING O2 Sat % Arterial 91 (L) 95 - 98 % [facility] POINT OF [facility] TESTING Ionized Calcium 1.13 1.12 - 1.32 [facility] mmol/L [facility] POINT OF [facility] TESTING Sodium 135 135 - 145 meq/L [facility] POINT OF [facility] TESTING Potassium 4.0 3.5 - 5.3 meq/L [facility] POINT OF CARE TESTING Glucose 177 (H) 70 - 100 mg/dL [facility] POINT OF CARE TESTING Hematocrit 30.0 (L) 40.0 - 50.0 % [facility] POINT OF [facility] TESTING Hemoglobin 10.2 (L) 13.5 - 17.5 [facility] g/dL [facility] POINT OF [facility] TESTING Specimen Source Arterial [facility] POINT OF CARE TESTING Specimen Blood Narrative Performed At DEVICE: [id number] [facility] POINT OF CARE Whole blood sample. Unable to evaluate for TESTING hemolysis. Performing Organization Address City/State/Zipcode Phone Number [facility] POINT OF [address] [place] [address] CARE TESTING CULTURE BACTERIAL, OTHER WITH GRAM STAIN (02/01/2019 1:58 PM CDT) Culture Result PSEUDOMONAS [facility] (!) CLINIC Culture Result [place] RESISTANT [facility] PSEUDOMONAS [facility] (!) Culture Result P[facility]ONAS [facility] (!) CLINIC Gram Stain Many (>25/LPF) WBC's [facility] Gram Stain Many (>25/LPF) RBC's [facility] Gram Stain No epithelial cells [facility] Gram Stain Few (1 to 5/OIF) Gram [facility] negative bacilli [facility] Specimen Fluid Narrative Performed At right pleural [facility] fluid Organism Antibiotic Method Susceptibility Pseudomonas aeruginosa, strain Cefepime VAL <=1 ug/mL: Sensitive one Pseudomonas aeruginosa, strain Ciprofloxacin VAL 2 ug/mL: Intermediate one Pseudomonas aeruginosa, strain Gentamicin VAL <=1 ug/mL: Sensitive one Pseudomonas aeruginosa, strain Piperacillin/Tazobactam VAL <=4 ug/mL: Sensitive one Pseudomonas aeruginosa, strain Tobramycin VAL <=1 ug/mL: Sensitive one Pseudomonas aeruginosa, CRPA, Cefepime VAL 8 ug/mL: Sensitive strain two Pseudomonas aeruginosa, CRPA, Ciprofloxacin VAL 2 ug/mL: Intermediate strain two Pseudomonas aeruginosa, CRPA, Gentamicin VAL <=1 ug/mL: Sensitive strain two Pseudomonas aeruginosa, CRPA, Meropenem VAL 8 ug/mL: Resistant strain two Pseudomonas aeruginosa, CRPA, Piperacillin/Tazobactam VAL 8 ug/mL: Sensitive strain two Pseudomonas aeruginosa, CRPA, Tobramycin VAL <=1 ug/mL: Sensitive strain two Pseudomonas aeruginosa, strain Cefepime VAL 4 ug/mL: Sensitive three Pseudomonas aeruginosa, strain Ciprofloxacin VAL <=0.25 ug/mL: Sensitive three Pseudomonas aeruginosa, strain Gentamicin VAL <=1 ug/mL: Sensitive three Pseudomonas aeruginosa, strain Piperacillin/Tazobactam VAL 16 ug/mL: Sensitive three Pseudomonas aeruginosa, strain Tobramycin VAL <=1 ug/mL: Sensitive three Performing Organization Address City/[facility]/Zipcode Phone Number [address] [phone] CULTURE BACTERIAL, ANAEROBE (02/01/2019 1:58 PM CDT) Culture Result No anaerobic growth [facility] at 5 days [facility] Specimen Fluid Narrative Performed At right pleural [facility] fluid Performing Organization Address [facility] Phone Number [address] [phone] LAB ONLY-[place] RESISTANCE GENE DETECTION, NAD (02/01/2019 1:58 PM CDT) Organism Pseudomonas [facility] Identification aeruginosa, strain [facility] two IMP Not Detected Not Detected [facility] VIM Not Detected Not Detected [facility] NDM Not Detected Not Detected [facility] KPC Not Detected Not Detected [facility] OXA48 Not Detected Not Detected [facility] Specimen Fluid Narrative Performed At This test was performed by polymerase chain reaction (PCR) on [facility] the GeneXpert instrument. Performing Organization Address [facility] Phone Number [address] [phone] PROTIME/INR (02/01/2019 4:53 AM CDT) Protime 13.7 12.0 - 14.[address] INR 1.1 (L) 2.0 - 3.[address] Specimen Blood Narrative Performed At Normal INR reference range (patients not on oral [address] anticoagulants)0.9-1.1. INR Standard Intensity=(2.0 - 3.0) INR Higher Intensity=(2.5 - 3.5) Performing Organization Address [facility] Phone Number [address] [place] [address] PTT (02/01/2019 4:53 AM CDT) APTT 31 24 - [address] Specimen Blood Performing Organization Address [facility] Phone Number [address] [address] XRAY VIDEO SWALLOW WITH FLUORO (01/29/2019 10:41 AM CDT) Specimen Narrative Performed At [facility] Patient Name: KENYA MEMBRENO Date of :1955 Procedure: XRAY VIDEO SWALLOW WITH FLUORO Date of Service: 01/29/2019 EXAM: XRAY VIDEO SWALLOW WITH FLUORO INDICATION: dysphagia TECHNIQUE: Video swallow with fluoroscopy performed in conjunction with speech pathology using varying consistencies of barium. FINDINGS: No evidence of aspiration or penetration. IMPRESSION: 1. No evidence of aspiration or penetration. 2. Please see speech pathology note for further discussion of findings and recommendations . Finalized by: Charles Hamilton MD on 01/29/2019 11:53 AM CDT Patient/Procedure Information: [facility] MRN/SHANNON: [id number] Order Number: [id number] Accession Number: [id number] Ordering Provider: ALEXIS TALBERT Authorizing Provider: ALEXIS TALBERT Procedure Note Ash, Radiantres - 01/29/2019 11:55 AM CDT Patient Name: KENYA MEMBRENO Date of : 1955 Procedure: XRAY VIDEO SWALLOW WITH FLUORO Date of Service: 01/29/2019 EXAM: XRAY VIDEO SWALLOW WITH FLUORO INDICATION: dysphagia TECHNIQUE: Video swallow with fluoroscopy performed in conjunction with speech pathology using varying consistencies of barium. FINDINGS: No evidence of aspiration or penetration. IMPRESSION: 1. No evidence of aspiration or penetration. 2. Please see speech pathology note for further discussion of findings and recommendations . Finalized by: Charles Hamilton MD on 01/29/2019 11:53 AM CDT Patient/Procedure Information: [facility] MRN/SHANNON: [id number] Order Number: [id number] Accession Number: [id number] Ordering Provider: ALEXIS TALBERT Authorizing Provider: ALEXIS TALBERT Performing Organization Address [facility] Phone Number [id number] GRAM STAIN (01/29/2019 6:53 AM CDT) Gram Stain Moderate (10 to 25/LPF) [facility] WBC's CLINIC Gram Stain Moderate (10 to 25/LPF) [facility] Squamous epithelial [facility] cells Gram Stain Not sales and marketing representative of [facility] lower respiratory [facility] secretions. Please collect a new specimen. Specimen Respiratory Performing Organization Address [facility] Phone Number [address] [phone] COMPREHENSIVE METABOLIC PANEL (01/29/2019 6:47 AM CDT)Only the most recent of3 resultswithin the time period is included. Glucose 119 (H) 70 - 100 mg/dL [address] BUN 6 6 - 22 mg/dL [address] Creatinine 0.56 (L) 0.80 - 1.[address] mg/dL BUN/Creatinine Ratio 10.7 10.0 - 25.[address] Sodium 136 135 - 145 meq/L [address] Potassium 3.8 3.5 - 5.3 meq/L [address] Chloride 99 99 - 110 meq/L [address] CO2 32 (H) 20 - 29 meq/L [address] Anion Gap with K 9 6 - 20 meq/L [address] Calcium 8.2 (L) 8.5 - 10.[address] mg/dL Protein Total 5.2 (L) 6.0 - 8.2 g/dL [address] Albumin 2.4 (L) 3.5 - 5.0 g/dL [address] Alkaline Phosphatase 120 30 - 150 U/L [address] AST - SGOT 28 0 - 35 U/L [address] ALT - SGPT 40 0 - 55 U/L [address] Bilirubin Total 0.6 0.2 - 1.2 mg/dL [address] Corrected Calcium 9.5 8.5 - 10.[address] mg/dL Age [address] eGFR Non- >90 >=[address] Lao mL/min/1.73m2 eGFR >90 >=[address] mL/min/1.73m2 Specimen Blood Performing Organization Address City/State/Zipcode Phone Number [address] [place] [phone] CHEST WITHOUT CONTRAST (01/28/2019 6:36 AM CDT) Specimen Narrative Performed At [facility] Patient Name: KENYA MEMBRENO Date of :1955 Procedure: CT CHEST WITHOUT CONTRAST Date of Service: 01/28/2019 EXAM: CT CHEST WITHOUT CONTRAST INDICATION:Pneumonia complicated / unresolved COMPARISON: Multiple prior chest radiographs including the prior day. Multiple prior CT chest examinations including 01/19/2019. TECHNIQUE: Noncontrast CT chest performed according to standard protocol. Multiplanar reformats are provided for review. 3-D MIP reconstructions are generated and utilized for interpretation. LIMITATIONS: Limited evaluation of the visceral/solid organs given lack of oral/intravenous contrast. FINDINGS: Lungs/pleura: Large region of cavitation in the right upper lung with air-fluid level and heterogeneous material in the central cavity. Overall thick walled cavity size measures approximately 11.5 cm craniocaudal by 10.5 cm AP (image 40 of 117, sagittal) by 9.9 cm transverse (image 33 of 97, axial). Adjacent to bronchiectasis, interstitial thickening and atelectatic changes are present in the right upper lobe adjacent to the aforementioned cavitary lesion. There are some peripheral-based regions of bronchiectasis and interstitial thickening within the upper lobes predominantly. Trace right effusion. Airways: Secretions in the trachea and mainstem bronchi. Numerous right-sided bronchi are displaced. Cardiac/pericardium: Small pericardial effusion. Lymph nodes: A few mildly prominent lymph nodes are present with a sales and marketing representative paratracheal node measuring 12 mm in short axis (image 37 of 97, axial), unchanged. Vasculature: Minimal atheromatous plaques in the arterial vasculature. Mediastinum: Normal. Soft tissue/musculature: Normal Osseous structures: Degenerative changes in the axial/appendicular skeleton. Sequela of prior dorsal fusion/decompression extending from T3 through T7 with bilateral T3/T4/T6/T7 transpedicular fixation screws and unilateral right T5 transpedicular fixation screw. Posterior parallel stabilization rods. Remote rib and sternal fractures. Upper abdomen: Unchanged subcentimeter hypoattenuating indeterminate lesion in the right hepatic lobe which most often reflects benign cyst or hemangioma though would be better assessed with hepatic protocol MRI. IMPRESSION: Increasing size of the right upper lobe cavitary lesion with adjacent bronchiectasis, infiltrate and atelectatic changes. Pulmonology follow-up recommended. Small pericardial effusion. Finalized by: James Curtis MD on 01/28/2019 7:21 AM CDT Patient/Procedure Information: [facility] MRN/SHANNON: [id number] Order Number: [id number] Accession Number: [id number] Ordering Provider: JAYY FUENTES Authorizing Provider: STEPAN WHALEN Procedure Note Interface, Radiantres - 01/28/2019 7:23 AM CDT Patient Name: KENYA MEMBRENO Date of : 1955 Procedure: CT CHEST WITHOUT CONTRAST Date of Service: 01/28/2019 EXAM: CT CHEST WITHOUT CONTRAST INDICATION:Pneumonia complicated / unresolved COMPARISON: Multiple prior chest radiographs including the prior day. Multiple prior CT chest examinations including 01/19/2019. TECHNIQUE: Noncontrast CT chest performed according to standard protocol. Multiplanar reformats are provided for review. 3-D MIP reconstructions are generated and utilized for interpretation. LIMITATIONS: Limited evaluation of the visceral/solid organs given lack of oral /intravenous contrast. FINDINGS: Lungs/pleura: Large region of cavitation in the right upper lung with air- fluid level and heterogeneous material in the central cavity. Overall thick walled cavity size measures approximately 11.5 cm craniocaudal by 10.5 cm AP (image 40 of 117, sagittal) by 9.9 cm transverse (image 33 of 97, axial). Adjacent to bronchiectasis, interstitial thickening and atelectatic changes are present in the right upper lobe adjacent to the aforementioned cavitary lesion. There are some peripheral-based regions of bronchiectasis and interstitial thickening within the upper lobes predominantly. Trace right effusion. Airways: Secretions in the trachea and mainstem bronchi. Numerous right-sided bronchi are displaced. Cardiac/pericardium: Small pericardial effusion. Lymph nodes: A few mildly prominent lymph nodes are present with a sales and marketing representative paratracheal node measuring 12 mm in short axis (image 37 of 97, axial), unchanged. Vasculature: Minimal atheromatous plaques in the arterial vasculature. Mediastinum: Normal. Soft tissue/musculature: Normal Osseous structures: Degenerative changes in the axial/appendicular skeleton. Sequela of prior dorsal fusion/decompression extending from T3 through T7 with bilateral T3/T4/T6/T7 transpedicular fixation screws and unilateral right T5 transpedicular fixation screw. Posterior parallel stabilization rods. Remote rib and sternal fractures. Upper abdomen: Unchanged subcentimeter hypoattenuating indeterminate lesion in the right hepatic lobe which most often reflects benign cyst or hemangioma though would be better assessed with hepatic protocol MRI. IMPRESSION: Increasing size of the right upper lobe cavitary lesion with adjacent bronchiectasis, infiltrate and atelectatic changes. Pulmonology follow-up recommended. Small pericardial effusion. Finalized by: James Curtis MD on 01/28/2019 7:21 AM CDT Patient/Procedure Information: [facility] MRN/SHANNON: [id number] Order Number: [id number] Accession Number: [id number] Ordering Provider: JAYY FUENTES Authorizing Provider: STEPAN WHALEN Performing Organization Address City/State/Zipcode Phone Number [id number] URINE DIP, REFLEX TO MICROSCOPIC, REFLEX TO CULTURE (01/27/2019 10:01 PM CDT) Color Urine Straw Jacquelin, Dark [place] [address] Yellow, Straw, CLINIC Yellow, Colorless Clarity Urine Clear Clear [address] Glucose Urine Negative Negative [address] Bilirubin Urine Negative Negative [address] Ketones Urine Negative Negative, 5 [place] [address] mg/dL, 10 mg/dL [facility] Specific Floweree 1.011 1.002 - 1.[address] Blood Urine Negative Negative [address] PH Urine 6.0 5.0, 5.5, 6.0, [place] [address] 6.5, 7.0, 7.5, CLINIC 8.0 Protein Urine Negative Negative [address] Urobilinogen 2 mg/dL (A) < 2 mg/dL [address] Nitrite Negative Negative [address] Leukocyte Esterase Negative Negative [place] [address] Urine CLINIC Specimen Urine Narrative Performed At Microscopic exam not indicated [address] Culture not performed - reflex criteria not met. Culture is only performed when the urine macroscopic color is reported as Bright Paden, or whentwoor more of the following criteria are met: Positive Nitrite, Positive Leukocyte Esterase, WBC's >5 cells/hpf. Performing Organization Address City/State/Zipcode Phone Number [address] [place] [address] XRAY CHEST PA AND LATERAL (01/27/2019 8:51 PM CDT) Specimen Narrative Performed At [facility] Patient Name: KENYA MEMBRENO Date of :1955 Procedure: XRAY CHEST PA AND LATERAL Date of Service: 01/27/2019 EXAM: XRAY CHEST PA AND LATERAL INDICATION:FEVER COMPARISON: Multiple prior chest radiographs including 01/18/2019. CT chest dated 01/19/2019. FINDINGS: SUPPORT DEVICES AND SURGICAL MATERIAL: Incompletely assessed thoracic fusion construct. CARDIAC/MEDIASTINAL CONTOURS: Normal size for technique. PLEURA/LUNGS: Evolution of the previously described right upper lobe cavitary pneumonic process now with a large cavitary lesion measuring approximately 15 cm craniocaudal with an air-fluid level. Left lung clear. Hyperinflation and flattened hemidiaphragms. ADDITIONAL FINDINGS: Numerous remote rib fractures. Degenerative changes in the axial/appendicular skeleton. IMPRESSION: Evolution of the previously described right upper lobe cavitary pneumonic process now with a large cavitary lesion measuring approximately 15 cm craniocaudal with an air-fluid level. Pulmonology follow-up and CT would be judicious. Finalized by: James Curtis MD on 01/28/2019 6:02 AM CDT Patient/Procedure Information: [facility] MRN/SHANNON: [id number] Order Number: [id number] Accession Number: [id number] Ordering Provider: GUSTAVO BOB Authorizing Provider: GUSTAVO BOB Procedure Note Interface, Radiantres - 01/28/2019 6:04 AM CDT Patient Name: KENYA MEMBRENO Date of : 1955 Procedure: XRAY CHEST PA AND LATERAL Date of Service: 01/27/2019 EXAM: XRAY CHEST PA AND LATERAL INDICATION:FEVER COMPARISON: Multiple prior chest radiographs including 01/18/2019. CT chest dated 01/19/2019. FINDINGS: SUPPORT DEVICES AND SURGICAL MATERIAL: Incompletely assessed thoracic fusion construct. CARDIAC/MEDIASTINAL CONTOURS: Normal size for technique. PLEURA/LUNGS: Evolution of the previously described right upper lobe cavitary pneumonic process now with a large cavitary lesion measuring approximately 15 cm craniocaudal with an air-fluid level. Left lung clear. Hyperinflation and flattened hemidiaphragms. ADDITIONAL FINDINGS: Numerous remote rib fractures. Degenerative changes in the axial/appendicular skeleton. IMPRESSION: Evolution of the previously described right upper lobe cavitary pneumonic process now with a large cavitary lesion measuring approximately 15 cm craniocaudal with an air-fluid level. Pulmonology follow-up and CT would be judicious. Finalized by: James Curtis MD on 01/28/2019 6:02 AM CDT Patient/Procedure Information: [facility] MRN/SHANNON: [id number] Order Number: [id number] Accession Number: [id number] Ordering Provider: GUSTAVO BOB Authorizing Provider: GUSTAVO BOB Performing Organization Address City/[facility]/Zipcode Phone Number [facility] CULTURE, BLOOD (01/27/2019 8:36 PM CDT)Only the most recent of2 resultswithin the time period is included. Culture Result No growth at 5 [facility] CLINIC Specimen Blood Performing Organization Address City/State/[facility] Phone Number [facility] [address] [place] [address] C-REACTIVE PROTEIN (INFLAMMATION) (01/27/2019 8:30 PM CDT) CRP 173.6 (H) 0.0 - 8.0 mg/L [address] Specimen Blood Performing Organization Address [facility] Phone Number [address] [place] [address] ESR (01/27/2019 8:30 PM CDT) ESR 85 (H) 0 - 15 mm/Hr [address] Specimen Blood Performing Organization Address [facility] Phone Number [address] [place] [address], [place] [address] PROCALCITONIN (01/27/2019 8:30 PM CDT) Procalcitonin 0.17 (H) <0.07 ng/mL [address] Specimen Blood Narrative Performed At Suspected Lower Respiratory Tract Infection: [address] 0.1-0.25: Low risk for bacterial infection; Antibiotics discouraged. > 0.25: Increased likelihood for bacterial infection; Antibiotics encouraged. Suspected Sepsis: 0.1-0.5: Low likelihood for sepsis; Antibiotics discouraged. > 0.5: Increased Likelihood for sepsis; Antibiotics encouraged. > 2.0: High risk of sepsis/septic shock; Antibiotics strongly encouraged. Decisions on antibiotic use should not be based solely on procalcitonin levels. If antibiotics are administered, repeat procalcitonin testing should be performed every 2-3 days to consider early antibiotic cessation. PCT is a dynamic biomarker and most useful when trends are analyzed over time in accompaniment with other clinical data. Performing Organization Address [facility] Phone Number [address] [place] [phone] LACTIC ACID (01/27/2019 8:30 PM CDT) Lactic Acid 1.0 0.5 - 2.2 mmol/L [address] Specimen Blood Performing Organization Address [facility] Phone Number [address] [place] [phone] documented in this encounter Visit Diagnoses Diagnosis Pneumonia of right upper lobe due to Pseudomonas species ([facility]) - Primary Acute febrile illness Fever, unspecified Generalized weakness Other malaise and fatigue Mass of right lung Current moderate episode of major depressive disorder without prior episode ( [facility]) [place] (generalized anxiety disorder) Generalized anxiety disorder Increased nutritional needs Chronic obstructive pulmonary disease, unspecified COPD type ([facility]) S/P spinal fusion Arthrodesis status Acute exacerbation of chronic obstructive pulmonary disease (COPD) ([facility]) Obstructive chronic bronchitis with exacerbation History of nicotine dependence Personal history of tobacco use, presenting hazards to health COPD, moderate ([facility]) Chronic airway obstruction, not elsewhere classified Urinary retention Retention of urine, unspecified Post-op pain Other acute postoperative pain Diaper rash Diaper or napkin rash Depressive disorder due to separate medical condition Pneumonia Pneumonia, organism unspecified Sepsis due to Pseudomonas ([facility]) Septicemia due to pseudomonas documented in this encounter Discharge Diagnoses Not on filedocumented in this encounter Administered Medications Medication Order MAR Action Action Date Dose Rate Site acetaminophen (TYLENOL) tablet Given 02/07/2019 9:52 PM CDT 650 mg 650 mg 650 mg, Oral, Every four hours prn, Starting Fri02/01/19 at 1842, Until Discontinued, mild pain, fever, Post - Op, for pain Scale 3 or less, Given 02/07/2019 6:40 AM CDT 650 mg Given 02/06/2019 8:48 PM CDT 650 mg albuterol (PROVENTIL) (2.5 mg/3mL) 0.083% Given 02/04/2019 9:02 PM CDT 2.5 mg inhalation soln 2.5 mg 2.5 mg (3 mL), Nebulization, Every four hours prn, Starting Fri02/02/19 at 1110, Until Discontinued, shortness of breath, wheezing, cough, 3 mL, Formulary Substitute for albuterol HFA, Given 02/03/2019 3:44 PM CDT 2.5 mg Given 02/03/2019 2:35 AM CDT 2.5 mg albuterol-ipratropium (DUO-NEB) 2.5-0.5 mg/3 Given 02/10/2019 12:21 PM CDT 3 mL mL inhalation solution 3 mL 3 mL, Nebulization, Four times a day, First dose on Fri02/05/19 at 0900, Until Discontinued, 3 mL Given 02/10/2019 8:52 AM CDT 3 mL Given 02/09/2019 5:06 PM CDT 3 mL calcium carbonate (TUMS) chewable tablet 500 Given 02/04/2019 10:24 AM CDT 500 mg mg 500 mg, Oral, Four times a day prn, Starting Fri02/04/19 at 0957, Until Discontinued, indigestion ceftazidime-avibactam (AVYCAZ) 2,500 mg in Given 02/10/2019 11:11 AM CDT 2, 500 mg sodium chloride 0.9% 250 mL 2,500 mg (2.5 g), IV, Every eight hours, First dose on Fri02/04/19 at 1130, Until Discontinued, 250 mL, Infuse over 2 hours., Given 02/10/2019 4:28 AM CDT 2,500 mg Given 02/09/2019 6:42 PM CDT 2,500 mg clonazePAM (klonoPIN) tablet 0.25 mg 0.25 mg, Oral, One time a day prn, Starting Fri02/05/19 at 1209, Until Discontinued, other (Specify), prior to procedures/suctioning where patient has increased anxiety fluticasone-vilanterol (BREO ELLIPTA) 100-25 Given 02/10/2019 8:52 AM CDT 1 puff mcg/puff inhaler 1 puff 1 puff, Inhalation, DAILY, First dose on Fri01/28/19 at 0900, Until Discontinued, Rinse mouth after use., Given 02/09/2019 8:27 AM CDT 1 puff Given 02/08/2019 12:37 PM CDT 1 puff gabapentin (NEURONTIN) capsule 400 mg Given 02/10/2019 10:15 AM CDT 400 mg 400 mg, Oral, Three times a day, First dose on Fri01/28/19 at 0900, Until Discontinued Given 02/09/2019 8:56 PM CDT 400 mg Given 02/09/2019 2:55 PM CDT 400 mg heparin (porcine) injection solution Given 02/10/2019 5:44 AM CDT 5,000 Units 5,000 Units 5,000 Units, Subcutaneous, Every eight hours, First dose on Fri02/02/19 at 0600, Until Discontinued, 1 mL, Post - Op Given 02/09/2019 10:51 PM CDT 5,000 Units Given 02/09/2019 2:55 PM CDT 5,000 Units hEParin 100 units/ mL injection for Given 02/09/2019 6:42 PM CDT 300 Units heplock FLUSH 300 Units (3 mL), IV, Two times a day and prn, First dose on Fri02/09/19 at 1700, Until Discontinued, 3 mL, Flush lumen with 10 mL sodium chloride 0.9% followed by heparin 300 units (100 units/mL) twice daily at 5745-6035 and after each use, loratadine (CLARITIN) tablet 10 mg Given 02/10/2019 10:15 AM CDT 10 mg 10 mg, Oral, Daily, First dose on Fri02/06/19 at 0900, Until Discontinued Given 02/09/2019 9:32 AM CDT 10 mg Given 02/08/2019 9:29 AM CDT 10 mg mirtazapine (REMERON) tablet 30 mg Given 02/09/2019 8:56 PM CDT 30 mg 30 mg, Oral, Bedtime, First dose on Fri02/05/19 at 2100, Until Discontinued Given 02/08/2019 8:47 PM CDT 30 mg Given 02/07/2019 9:26 PM CDT 30 mg nicotine (NICODERM) Applied 02/10/2019 10:15 AM CDT 14 mg Arm Left Upper TD 14mg/24hr patch 14 mg (1 patch), Transdermal, Daily, First dose on Fri01/28/19 at 1045, Until Discontinued, Administer over 24 Hours Applied 02/09/2019 9:33 AM CDT 14 mg Left Arm Applied 02/08/2019 9:30 AM CDT 14 mg Arm Left Upper TD nicotine polacrilex (COMMIT) lozenge 2 mg Given 01/28/2019 11:22 AM CDT 2 mg 2 mg (1 lozenge), Mouth/Throat, Every one hour prn, Starting Bernadine 01/28/19 at 1044, Until Discontinued, smoking cessation, other (Specify), tobacco cravings, Should not be crushed or chewed, nystatin (NILSTAT) ointment Given 02/10/2019 10:15 AM CDT Apply externally, Two times a day, First dose on Fri02/01/19 at 2250, Until Discontinued Given 02/09/2019 9:00 PM CDT Given 02/09/2019 9:33 AM CDT oxyCODONE (OXY-IR) tablet 5 mg Given 02/06/2019 5:23 AM CDT 5 mg 5 mg, Oral, Every three hours prn, Starting 02/01/19 at 1842, Until Discontinued, moderate pain, Post - Op, for pain Scale 4 to 6 or pain not relieved by medications for Pain Scale 1 - 3, Given 02/05/2019 11:15 PM CDT 5 mg Given 02/05/2019 6:57 PM CDT 5 mg pantoprazole (PROTONIX) enteric coated tablet Given 02/10/2019 6:12 AM CDT 20 mg 20 mg 20 mg, Oral, DAILY, First dose on Fri02/04/19 at 1100, Until Discontinued, Tablet should be swallowed whole and not be divided, crushed or chewed., Given 02/09/2019 6:54 AM CDT 20 mg Given 02/08/2019 6:28 AM CDT 20 mg sodium chloride 0.9% flush (adult) 10 mL Given 02/09/2019 9:33 AM CDT 10 mL 10 mL, IV, Two times a day and prn, First dose on Fri01/28/19 at 0900, Until Discontinued, 10 mL, Flush IV line as scheduled and as often as necessary before and after meds., Given 02/08/2019 8:47 PM CDT 10 mL Given 02/08/2019 9:29 AM CDT 10 mL sodium chloride 0.9% prefilled 10 mL syringe Given 02/09/2019 6:43 PM CDT 10 mL (Materials Management Item) 10 mL 10 mL, IV, Two times a day and prn, First dose on Fri02/09/19 at 1700, Until Discontinued, 10 mL, Flush lumen with 10 mL sodium chloride 0.9% followed by heparin 300 units (100 units/mL) twice daily at 0484-9924 and after each use, tamsulosin (FLOMAX) capsule 0.4 mg Given 02/09/2019 8:56 PM CDT 0.4 mg 0.4 mg, Oral, Bedtime, First dose on Fri01/28/19 at 2100, Until Discontinued, Swallow cap whole. Do not crush, chew or open., Given 02/08/2019 8:47 PM CDT 0.4 mg Given 02/07/2019 9:26 PM CDT 0.4 mg Medication Order MAR Action Action Date Dose Rate Site albuterol (PROVENTIL) (2.5 Given 01/29/2019 12:35 AM CDT 2.5 mg mg/3mL) 0.083% inhalation soln 2.5 mg 2.5 mg (3 mL), Nebulization, Every four hours prn, Starting Bernadine 01/28/19 at 0225, Until Fri02/01/19 at 1842, shortness of breath, wheezing, cough, 3 mL, Formulary Substitute for albuterol HFA, albuterol (PROVENTIL) (2.5 mg/3mL) 0.083% Given 02/02/2019 8:24 AM CDT 2.5 mg inhalation soln 2.5 mg 2.5 mg (3 mL), Nebulization, Every four hours, First dose on Fri02/01/19 at 2000, Until Discontinued, 3 mL, Formulary Substitute for albuterol HFA, Given 02/02/2019 5:11 AM CDT 2.5 mg Given 02/02/2019 12:25 AM CDT 2.5 mg barium sulfate (E-Z DISK) tablet 700 mg Given 01/29/2019 10:56 AM CDT 700 mg 700 mg, Oral, Now imaging, 1 dose, Starting Fri01/29/19 at 1050, Until Fri01/29/19 at 1056, E-Z DISK, barium sulfate (VARIBAR) suspension 110 mL Given 01/29/2019 10:48 AM CDT 110 mL 110 mL, Oral, Now imaging, 1 dose, Starting Fri01/29/19 at 1042, Until Fri01/29/19 at 1048, 148 mL, VARIBAR Thin Liquid suspension, barium sulfate 40% paste (VARIBAR PUDDING) Given 01/29/2019 10:49 AM CDT 5 mL suspension 5 mL 5 mL, Oral, Now imaging, 1 dose, Starting Fri01/29/19 at 1042, Until Fri01/29/19 at 1049, 230 mL, VARIBAR Pudding paste, barium sulfate 98% powder (EZ-HD) suspension 5 Given 01/29/2019 10:47 AM CDT 5 mL mL 5 mL, Oral, Now imaging, 1 dose, Starting Fri01/29/19 at 1046, Until Fri01/29/19 at 1047, 135 mL, EZ-HD, fentaNYL CUT OFF SAW OPERATOR PIPE BLANKS (50 mcg/mL) solution Rate Verify 02/01/2019 6:29 PM CDT IV, Continuous, Starting Fri02/01/19 at 1755, Until Fri02/02/19 at 1859 New Bag/Tubing 02/01/2019 5:56 PM CDT guaiFENesin (MUCINEX) SR tablet (12 hr) 600 Given 02/01/2019 8:05 AM CDT 600 mg mg 600 mg, Oral, Two times a day, First dose on Fri01/29/19 at 1125, Until Discontinued, Tablet should be swallowed whole and not be divided, crushed or chewed., Given 01/31/2019 8:52 PM CDT 600 mg Given 01/31/2019 9:25 AM CDT 600 mg heparin (porcine) injection solution Given 01/31/2019 10:52 PM CDT 5,000 Units 5,000 Units 5,000 Units, Subcutaneous, Every eight hours, First dose on Fri01/28/19 at 0600, Until Discontinued, 1 mL Given 01/31/2019 2:36 PM CDT 5,000 Units Given 01/31/2019 6:41 AM CDT 5,000 Units HYDROmorphone (DILAUDID) injection solution Given 02/05/2019 8:50 PM CDT 1 mg (conc: 1 mg/mL) 1 mg 1 mg, IV, Every one hour prn, Starting Fri02/01/19 at 1842, Until Fri02/08/19 at 1028, severe pain, 1 mL, Post - Op, for pain Scale 7 or greater or pain not relieved by medications for Pain Scale 4 to 6, Given 02/04/2019 4:37 AM CDT 1 mg ketorolac (TORADOL) intravenous injection 15 Given 02/03/2019 2:34 AM CDT 15 mg mg 15 mg, IV, Every six hours prn, Starting Fri02/01/19 at 1842, Until Bernadine 02/04/19 at 1841, other (Specify), pain not responding to other pain medications, 1 mL, Post - Op, If preference is to further dilute for IV administration: First draw up patient-specific dose, then dilute to 10 mL with 0.9% sodium chloride., Given 02/01/2019 8:21 PM CDT 15 mg meropenem (MERREM) 1,000 mg in sodium Given 01/27/2019 11:49 PM CDT 1,000 mg chloride 0.9% 100 mL 1,000 mg, IV, Now, 1 dose, Fri01/27/19 at 2250, 120 mL, Administer first dose over 30 minutes., meropenem (MERREM) 500 mg in sodium chloride Given 02/04/2019 8:25 AM CDT 500 mg 0.9% 100 mL 500 mg, IV, Every six hours, First dose on Bernadine 01/28/19 at 0600, Until Discontinued, 110 mL Given 02/04/2019 3:09 AM CDT 500 mg Given 02/03/2019 7:34 PM CDT 500 mg mirtazapine (REMERON) tablet 15 mg Given 02/04/2019 9:13 PM CDT 15 mg 15 mg, Oral, Bedtime, First dose on Fri02/04/19 at 2100, Until Discontinued nystatin (NILSTAT) cream Given 02/01/2019 8:06 AM CDT Apply externally, Two times a day, First dose on Fri01/28/19 at 1030, Until Discontinued Given 01/31/2019 8:52 PM CDT Given 01/31/2019 9:36 AM CDT potassium chloride (K-TAB) CR tablet 40 mEq Given 01/28/2019 6:05 AM CDT 40 mEq 40 mEq, Oral, One time, 1 dose, Bernadine 01/28/19 at 0425, Tablet should not be crushed or chewed., scopolamine (TRANSDERM-SCOP) patch Applied 02/01/2019 8:05 AM CDT 1 patch Left Ear 1 patch 1 patch, Transdermal, One time, 1 dose, 02/01/19 at 0800, Administer over 48 Hours sodium chloride 0.9% (bolus) IV solution Given 01/27/2019 9:09 PM CDT 1, 000 mL 1,000 mL 1,000 mL, IV, Bolus, 1 dose, Fri01/27/19 at 2205, 1,000 mL sodium chloride 0.9% IV solution flush bag New Bag 02/09/2019 1:24 PM CDT 500 mL IV, Continuous, Starting Fri02/09/19 at 1205, Until Fri02/10/19 at 1204, 500 mL, IV line carrier for line flush with blood product infusion., sodium chloride 0.9% IV solution New Bag 01/27/2019 8:37 PM CDT 150 mL/hr IV, at 150 mL/hr, Now, 1 dose, Fri01/27/19 at 2020, 1,000 mL sodium chloride 0.9% IV solution New Bag 01/28/2019 10:09 PM CDT 100 mL/hr IV, at 100 mL/hr, Continuous, Starting Bernadine 01/28/19 at 0410, Until Fri01/29/19 at 0953, 1,000 mL New Bag 01/28/2019 5:55 AM CDT 100 mL/hr sodium chloride 0.9% IV solution New Bag 02/02/2019 6:41 PM CDT 75 mL/hr IV, at 75 mL/hr, Continuous, Starting Fri02/01/19 at 1845, Until Fri02/03/19 at 0801, 1,000 mL, Post - Op, DC once oral intake is adequate, New Bag 02/02/2019 1:46 AM CDT 75 mL/hr New Bag 02/01/2019 7:27 PM CDT 75 mL/hr sodium chloride 0.9% IV Already Infusing 02/01/2019 6:12 PM CDT 125 mL/ hr solution IV, at 125 mL/hr, Continuous, Starting Fri02/01/19 at 1825, Until Fri02/01/19 at 1944, 1,000 mL, PACU, TKO current fluids if patient is going to Day Unit / ARU and tolerating PO fluids without nausea., documented in this encounter
[2019-02-25] MEDS: Tamsulosin 0.4 MG Cap.ER PO SCH (21:00)
[2019-02-25] MEDS: Mirtazapine 15 MG Tab PO SCH (21:02)
[2019-02-25] MEDS: Sodium Chloride 0.9% 10 ML Syringe FLUSH PRN (21:15)
[2019-02-26] MEDS: Sodium Chloride 0.9% 10 ML Syringe FLUSH PRN (05:20)
[2019-02-26] MEDS: Formoterol/Mometasone 100-5 MCG 8.8 GM Inhaler IH SCH ×2 (08:09→21:09)
[2019-02-26] MEDS: Ascorbic Acid 500 MG Tab PO SCH (08:10)
[2019-02-26] MEDS: Multivitamins,Therapeutic Tab PO SCH (08:10)
[2019-02-26] MEDS: Cyanocobalamin (Vitamin B12) 500 MCG Tab PO SCH (08:10)
[2019-02-26] MEDS: Folic Acid 1 MG Tab PO SCH (08:11)
[2019-02-26] MEDS: Nystatin Ointment 15 GM Tube TOP SCH ×2 (08:11→21:10)
[2019-02-26] MEDS: Thiamine 100 MG Tab PO SCH (08:11)
[2019-02-26] MEDS: Cholecalciferol (Vitamin D3) 25 MCG Tab PO SCH (08:11)
[2019-02-26] MEDS: Nicotine 7 MG/24 Hr Patch TOP SCH (08:12)
[2019-02-26] MEDS: Gabapentin 300 MG Cap PO SCH ×3 (08:18→21:10)
[2019-02-26] MEDS: Tamsulosin 0.4 MG Cap.ER PO SCH (21:10)
[2019-02-26] MEDS: Mirtazapine 15 MG Tab PO SCH (21:11)
[2019-02-27] MEDS: Nystatin Ointment 15 GM Tube TOP SCH ×2 (09:40→20:00)
[2019-02-27] MEDS: Thiamine 100 MG Tab PO SCH (09:40)
[2019-02-27] MEDS: Ascorbic Acid 500 MG Tab PO SCH (09:40)
[2019-02-27] MEDS: Cyanocobalamin (Vitamin B12) 500 MCG Tab PO SCH (09:40)
[2019-02-27] MEDS: Multivitamins,Therapeutic Tab PO SCH (09:40)
[2019-02-27] MEDS: Formoterol/Mometasone 100-5 MCG 8.8 GM Inhaler IH SCH ×2 (09:41→20:00)
[2019-02-27] MEDS: Folic Acid 1 MG Tab PO SCH (09:41)
[2019-02-27] MEDS: Nicotine 7 MG/24 Hr Patch TOP SCH (09:41)
[2019-02-27] MEDS: Cholecalciferol (Vitamin D3) 25 MCG Tab PO SCH (09:43)
[2019-02-27] MEDS: Gabapentin 300 MG Cap PO SCH ×3 (09:46→20:00)
[2019-02-27] MEDS: Tamsulosin 0.4 MG Cap.ER PO SCH (20:00)
[2019-02-27] MEDS: Mirtazapine 15 MG Tab PO SCH (20:00)
[2019-02-28] MEDS: Ascorbic Acid 500 MG Tab PO SCH (08:47)
[2019-02-28] MEDS: Formoterol/Mometasone 100-5 MCG 8.8 GM Inhaler IH SCH ×2 (08:47→20:02)
[2019-02-28] MEDS: Thiamine 100 MG Tab PO SCH (08:48)
[2019-02-28] MEDS: Cyanocobalamin (Vitamin B12) 500 MCG Tab PO SCH (08:48)
[2019-02-28] MEDS: Folic Acid 1 MG Tab PO SCH (08:48)
[2019-02-28] MEDS: Multivitamins,Therapeutic Tab PO SCH (08:49)
[2019-02-28] MEDS: Cholecalciferol (Vitamin D3) 25 MCG Tab PO SCH (08:50)
[2019-02-28] MEDS: Nystatin Ointment 15 GM Tube TOP SCH ×2 (08:50→20:03)
[2019-02-28] MEDS: Nicotine 7 MG/24 Hr Patch TOP SCH (08:51)
[2019-02-28] MEDS: Gabapentin 300 MG Cap PO SCH ×3 (08:56→20:09)
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
[2019-02-28] MEDS: Mirtazapine 15 MG Tab PO SCH (20:04)
[2019-02-28] MEDS: Tamsulosin 0.4 MG Cap.ER PO SCH (20:05)
[2019-03-01] MEDS: Gabapentin 300 MG Cap PO SCH ×3 (09:02→20:22)
[2019-03-01] MEDS: Formoterol/Mometasone 100-5 MCG 8.8 GM Inhaler IH SCH ×2 (09:02→20:22)
[2019-03-01] MEDS: Folic Acid 1 MG Tab PO SCH (09:03)
[2019-03-01] MEDS: Nicotine 7 MG/24 Hr Patch TOP SCH (09:04)
[2019-03-01] MEDS: Multivitamins,Therapeutic Tab PO SCH (09:05)
[2019-03-01] MEDS: Cyanocobalamin (Vitamin B12) 500 MCG Tab PO SCH (09:05)
[2019-03-01] MEDS: Thiamine 100 MG Tab PO SCH (09:05)
[2019-03-01] MEDS: Ascorbic Acid 500 MG Tab PO SCH (09:06)
[2019-03-01] MEDS: Cholecalciferol (Vitamin D3) 25 MCG Tab PO SCH (09:06)
[2019-03-01] MEDS: Mirtazapine 15 MG Tab PO SCH (20:22)
[2019-03-01] MEDS: Tamsulosin 0.4 MG Cap.ER PO SCH (20:22)
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
[2019-03-02] MEDS: Ascorbic Acid 500 MG Tab PO SCH (09:05)
[2019-03-02] MEDS: Formoterol/Mometasone 100-5 MCG 8.8 GM Inhaler IH SCH (09:05)
[2019-03-02] MEDS: Gabapentin 300 MG Cap PO SCH (09:06)
[2019-03-02] MEDS: Nicotine 7 MG/24 Hr Patch TOP SCH (09:06)
[2019-03-02] MEDS: Cholecalciferol (Vitamin D3) 25 MCG Tab PO SCH (09:06)
[2019-03-02] MEDS: Cyanocobalamin (Vitamin B12) 500 MCG Tab PO SCH (09:06)
[2019-03-02] MEDS: Folic Acid 1 MG Tab PO SCH (09:06)
[2019-03-02] MEDS: Thiamine 100 MG Tab PO SCH (09:07)
[2019-03-02] MEDS: Multivitamins,Therapeutic Tab PO SCH (09:07)
== END 2019-03-02 11:10 | disposition home or self-care (01) | DRG 177 ==
LOC: FB.MS 14:30
PROVIDERS: ADMIT Family Medicine; ATTEND Family Medicine
DX: J15.1 Pneumonia due to Pseudomonas (principal); J86.9 Pyothorax without fistula; Z51.5 Encounter for palliative care; M19.90 Unspecified osteoarthritis, unspecified site; F32.9 Major depressive disorder, single episode, unspecified; R41.89 Other symptoms and signs involving cognitive functions and awareness; I10 Essential (primary) hypertension; R79.89 Other specified abnormal findings of blood chemistry; N31.9 Neuromuscular dysfunction of bladder, unspecified; R29.898 Other symptoms and signs involving the musculoskeletal system; R22.41 Localized swelling, mass and lump, right lower limb; J44.9 Chronic obstructive pulmonary disease, unspecified; D64.9 Anemia, unspecified; S22.43XD Multiple fractures of ribs, bilateral, subsequent encounter for fracture with routine healing; S22.009D Unspecified fracture of unspecified thoracic vertebra, subsequent encounter for fracture with routine healing; S27.2XXD Traumatic hemopneumothorax, subsequent encounter; Z98.1 Arthrodesis status; Z98.890 Other specified postprocedural states; Z85.038 Personal history of other malignant neoplasm of large intestine; Z79.899 Other long term (current) drug therapy; Z85.46 Personal history of malignant neoplasm of prostate; Z90.79 Acquired absence of other genital organ(s); Z87.891 Personal history of nicotine dependence; V89.2XXD Person injured in unspecified motor-vehicle accident, traffic, subsequent encounter
CPT/HCPCS: 36415; 71046; 80053; 82550; 82565; 83880; 84450; 85018; 85025; 85379; 86140; 93971-RT; 97110-GO; 97110-GP; 97116-GP; 97161-GP; 97165-GO; 97530-GO; 97530-GP; 97535-GO; 97542-GO; A9270-GY; J0714; J1642; J1650; J7050